=== PATIENT | male | born 1965 | race Caucasian/White ===

== ENCOUNTER 2025-05-11 13:55 | Inpatient (IN) | payer BC, SELFPAY ==
[2025-05-11] VITALS (13 sets, daily range): BP systolic 126–174; BP diastolic 72–125; PULSE 84–119; RESP 16–95; TEMP 36.8–36.9; O2SAT 95–99; BMI 25.1
--- NOTE | 2025-05-11 14:17 | EKG_ITS ---
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1965 Requested By: Jamila Rene Order Number: [id number] Reading MD: Jamila Rene Measurements Intervals [place] Rate: 109 P: 61 [place]: 149 QRS: 87 QRSD: 98 T: 2 QT: 329 QTc: 445 Interpretive Statements SINUS TACHYCARDIA INCOMPLETE RIGHT BUNDLE BRANCH BLOCK [90+ ms QRS DURATION, TERMINAL R IN V1/V2, 40+ ms S IN I/aVL/V4/V5/V6] NONSPECIFIC ST & T-WAVE ABNORMALITY ABNORMAL RHYTHM ECG Compared to ECG 05/31/2024 13:28:54 Incomplete right bundle-branch block now present T-wave abnormality now present Sinus rhythm no longer present Left ventricular hypertrophy no longer present ST (T wave) deviation no longer present /store/S0/[id number]/ecg/[id number].pdf
--- NOTE | 2025-05-11 14:24 | XR_ITS ---
Examination: CT brain head without contrast. 2-D sagittal coronal reconstructions Date and time of exam:May 11, 2025, 1652 hours Comparison August 22, 2024 INDICATIONS: Altered mental status today, history CVA CTDI: vol (mGy):47.1 DLP: (mGycm):967 Technique: Multiple CT axial sections of the brain have been obtained, 5 mm slice thickness. Contrast has not been administered. 2-D sagittal, coronal reconstructions have been obtained Low dose protocols were performed. One or more of the following dose reduction techniques were used; automated exposure control, adjustment of the mA and/or KV according to patient size, use of iterative reconstruction technique. Findings: No significant ventricular enlargement. Areas of encephalomalacia in the right and left frontal lobes Intra-axial or extra-axial hemorrhage density is not seen. No mass effect or midline shift Basal cisterns are not remarkable. Fourth ventricle is midline. Cranial vault intact. Impression: Negative for acute hemorrhage, mass effect or midline shift If symptoms persist, consider repeat brain MRI follow-up, show protocol
--- NOTE | 2025-05-11 14:24 | XR_ITS ---
Examination: AP chest single view Technique one AP portable upright chest single view Date and time: May 11, 2025 1458 hours Comparison August 22, 2024 INDICATIONS: Chest pain today. FINDINGS: Normal heart size. Lungs are clear. The osseous structures are intact IMPRESSION: No active disease
[2025-05-11 14:56] LABS: Base Excess, Venous -9 (-3-3); O2 Saturation, Venous 95 % (96-97); PCO2, Venous 35 mmHg (36-56); PO2, Venous 77 mmHg (15-58); pH, Venous 7.29 (7.33-7.66)
[2025-05-11 14:59] LABS: Basophils # (Auto) 0.1 Thou/mm3 (0.0-0.2); Basophils % (Auto) 1 % (0-2.5); Eosinophils # (Auto) 0.0 Thou/mm3 (0.0-0.5); Eosinophils % (Auto) 0 % (0-10); Hematocrit 44.3 % (41.0-53.0); Hemoglobin 15.8 g/dL (13.5-16.0); Immature Granulocytes Auto 0.05 Thou/mm3 (0.00-0.00); Lymphocytes # (Auto) 0.9 Thou/mm3 (1.0-4.8); Lymphocytes % (Auto) 10 % (10-50); Mean Corpuscular HGB Conc 35.7 g/dl (31.0-37.0); Mean Corpuscular Hemoglobin 31.4 pg (25.0-35.0); Mean Corpuscular Volume 88 fL (80-100); Monocytes # (Auto) 0.8 Thou/mm3 (0.0-0.8); Monocytes % (Auto) 8 % (0-12); Neutrophils # (Auto) 7.1 Thou/mm3 (1.8-7.7); Neutrophils % (Auto) 80 % (37-80); Nucleated Red Blood Cell # 0.00 Thou/mm3 (0.00-0.00); Nucleated Red Blood Cell % 0 /100 WBC (0); Platelet Count 181 Thou/mm3 (140-440); RDW Standard Deviation 40.6 fL (35.1-43.9); Red Blood Count 5.03 Miln/mm3 (4.50-5.90); White Blood Count 8.9 Thou/mm3 (3.8-10.6)
[2025-05-11 15:02] LABS: Lactate (Lactic Acid) 9.2 mMol/L (0.4-2.0)
[2025-05-11 15:24] LABS: Alanine Aminotransferase 38 U/L (10-49); Albumin, Serum 5.0 gm/dL (3.4-4.8); Albumin/Globulin Ratio 1.7 (1.2-2.2); Alcohol, Blood Medical < 3.0 mg/dL (0-10.0); Alkaline Phosphatase 90 U/L (46-116); Anion Gap 18 (7-16); Aspartate Amino Transferase 37 U/L (0-34); B-Type Natriuretic Peptide < 20 pg/mL (0-100); BUN/Creatinine Ratio 10 Ratio (12-20); Bilirubin,Total 1.1 mg/dL (0.3-1.2); Blood Urea Nitrogen 12 mg/dL (9-23); Calcium 9.9 mg/dL (8.3-10.6); Calcium (Corrected) 9.9 mg/dL (8.5-10.1); Carbon Dioxide 15.5 mMol/L (20.0-31.0); Chloride 107 mMol/L (98-107); Creatine Kinase 248 U/L (34-171); Creatinine (Component) 1.2 mg/dL (0.6-1.3); Estimated Creatinine Clearance 66.7 mL/min (>60); Globulin 2.9 gm/dL (2.3-3.5); Glucose 143 mg/dL (74-106); Osmolality,Calculated 281 (275-295); Potassium 4.2 mMol/L (3.4-5.1); Sodium 140 mMol/L (136-145); Total Protein 7.9 gm/dL (5.7-8.2); Troponin I < 0.020 ng/mL (0.0-0.045); eGFR > 60 See Note
--- NOTE | 2025-05-11 15:33 | EDNOTE_ITS ---
ED Seizures RME/HPI General Chief Complaint: Seizure Stated Complaint: POSSIBLE SEIZURE Time Seen by Provider: 05/11/25 14:24 Arrival date/time: 05/11/25 13:55 Limitations: no limitations RME / HPI RME / HPI Narrative: 60 year old male with history of hypertension presents the ED after experiencing a witnessed seizure at work that was witnessed by colleagues. Upon arrival, the patient was slightly postictal, confused and disoriented, and was speaking incoherently. The patient has no known history of seizures. There are no other symptoms or complaints reported at this time. No recent illness or trauma. Patient admits to drinking alcohol daily. Related Data Previous Rx's ?Medication ?Instructions ?Recorded amlodipine 10 mg tablet 10 mg PO QDAY #30 tabs 11/25 amoxicillin 875 mg-potassium 1 tab PO BID #14 tabs clavulanate 125 mg tablet (Augmentin) meclizine 50 mg tablet 50 mg PO BID PRN dizziness # 20 tabs 08/22/24 Allergies Allergy/AdvReac Type Severity Reaction Status Date / Time No Known Allergies Allergy Verified 11/24/19 09:48 Review of Systems Review of Systems Systems Reviewed: All systems reviewed, normal except as documented Past Medical History Past Medical History NEUROLOGIC: Positive Traumatic Brain Injury CARDIAC: Positive Hypertension PSYCHO/SOCIAL: Positive Depression Surgical History SURGICAL: Positive Cardiac Surgery and Tonsillectomy Social History SMOKING STATUS: Never smoker SECOND HAND EXPOSURE: No SUBSTANCE USE: does not use ED Exam General Limitations: Present no limitations General appearance: Present alert and in no apparent distress Head Head exam: Present atraumatic Eye Eye exam: Present normal appearance, PERRL and EOMI ENT ENT exam: Present normal exam, normal oropharynx and mucous membranes moist Neck Neck exam: Present normal inspection, full ROM and trachea midline Chest Chest inspection: Present normal inspection and symmetric chest wall rise Respiratory Respiratory exam: Present normal lung sounds bilaterally Cardiovascular Cardiovascular exam: Present regular rate, normal rhythm and normal heart sounds Abdominal Exam Abdominal exam: Present soft and normal bowel sounds Extremities Exam Extremities exam: Present normal inspection and full ROM Back Exam Back exam: Present normal inspection and full ROM Neurological Exam Neurological exam: Present alert (Slightly postictal ) and CN II-XII intact Psychiatric Psychiatric exam: Present normal affect and normal mood Skin Skin exam: Present warm, dry, intact and normal color Course Quality Measures none Orders Category Date Time Status COVID-19 Screening Questionnaire NOW Care 05/11/25 18:22 Active Decision to Admit X1 Care 05/11/25 18:22 Completed EKG (ED ONLY) *Do not use* NOW Care 05/11/25 14:[address] head/brain wo con Stat Exams 05/11/25 14:24 Completed CXRP [XR chest 1V portable] Stat Exams 05/11/25 14:24 Completed EKG (ED Only) Stat Exams 05/11/25 14:17 Draft Alcohol, Blood Medical Stat Lab 05/11/25 14:35 Completed BNP [B-Type Natriuretic Peptide] Stat Lab 05/11/25 14:35 Completed CBC [CBC] Stat Lab 05/11/25 14:35 Completed CK [Creatine Kinase] Stat Lab 05/11/25 14:35 Completed CMP [Comprehensive Metabolic Panel] Stat Lab 05/11/25 14:35 Completed Drug Screen,Urine Stat Lab 05/11/25 17:05 Completed Lactate (Lactic Acid) Stat Lab 05/11/25 14:35 Completed Lactic Acid, 3 HR Stat Lab 05/11/25 18:08 Completed Troponin I Stat Lab 05/11/25 14:35 Completed UA, C/S IF [Urinalysis, C/S if Indicated] Stat Lab 05/11/25 17:05 Completed VBG [Venous Blood Gas] Stat Lab 05/11/25 14:35 Completed Diazepam [Valium] Med 05/11/25 18:14 Discontinued 10 mg PO X1 ONE Phenytoin Inj [Dilantin Inj] Med 05/11/25 18:17 Discontinued 1,000 mg IV X1 ONE Phenytoin Inj [Dilantin Inj] 1,000 mg Med 05/11/25 18:30 Active Sodium Chloride 0.9% [Ns] 100 ml IV X1 Thiamine Inj [Vitamin B-1 Inj] 250 mg Med 05/11/25 18:16 Discontinued Sodium Chloride 0.9% [Ns] 100 ml IV X1 Vital Signs Vital signs: Vital Signs Temperature 98.5 F 05/11/25 13:59 Pulse Rate 119 H 05/11/25 13:59 Respiratory Rate 18 05/11/25 13:59 Blood Pressure 174/94 H 05/11/25 13:59 Pulse Oximetry (%) 95 05/11/25 13:59 Oxygen Delivery Method Room Air 05/11/25 13:59 Pulse ox is 95% on room air which is adequate. Seizure MDM Narrative MDM Narrative:: ILivier, deborah scribing for and in the presence of Dr. Martell. Assessment: Acute encephalopathy, most likely secondary to alcohol use, new- onset seizure, likely alcohol-related. Plan: Thiamine, CT head, no antiepileptic medications started at this time, as this was a first-time seizure with likely provoked etiology, monitoring, and alcohol cessation. Patient CK is elevated, consistent with seizure. Patient will be admitted to medicine team for alcohol withdrawal seizure and Wernicke encephalopathy. Patient data External records reviewed:: [facility] previous records (I reviewed ED visit on 2023 ) and EMS form Clinical information provided by:: patient and EMS Social determinants that could affect healthcare access:: alcohol use Patient has the following chronic illnesses:: Alcoholism How is presenting disease/condition affected by chronic disease/condition?: exac erbated by Evaluation data The following diagnostics were reviewed and interpreted by me:: lab results, radiology exam(s) and EKG tracing(s) (sinus tachycardia, no axis deviation, no ischemia, positive LVH, normal QT, rate 109. ) Lab and/or radiology exams considered but not ordered:: None Interpretation Summary: Ordering Physician: Jamila Rene MD Date of Service: 05/11/25 Procedure(s): XR chest 1V portable Accession Number(s): [id number] cc: Jamila Rene MD; Pito Hsieh MD~ Examination: AP chest single view Technique one AP portable upright chest single view Date and time: May 11, 2025 1458 hours Comparison August 22, 2024 INDICATIONS: Chest pain today. FINDINGS: Normal heart size. Lungs are clear. The osseous structures are intact IMPRESSION: No active disease Dictated By: Pito Hsieh MD Signed By: <Electronically signed by Pito Hsieh MD in OV> 05/11/25 1455 Medications / Prescriptions Medications or Prescriptions considered but not ordered:: None Medication administrations:: Medication Administration History Phenytoin Sodium 1,000 mg/ (Sodium Chloride) 120 mls @ 240 mls/hr IV X1 ONE Stop: 05/11/25 18:59 Discontinued Medications Diazepam (Diazepam 5 Mg Tablet) 10 mg PO X1 ONE Stop: 05/11/25 18:15 Thiamine HCl 250 mg/ Sodium (Chloride) 102.5 mls @ 205 mls/hr IV X1 ONE Stop: 05/11/25 18:45 Phenytoin Sodium (Phenytoin Inj 50 Mg/Ml Vial 5 Ml) 1,000 mg IV X1 ONE Stop: 05/11/25 18:18 Last Admin: 05/11/25 18:30 Dose: Not Given Documented By: DB Non-Admin Reason: Cancelled by Provider None Consultations Consultation(s) initiated? (list below): No Diagnosis Seizure Differential Diagnosis: febrile convulsion, focal seizure, generalized seizure, epileptic seizure, status epilepticus and other (encephalopathy ) Most likely diagnosis given after review of the tests above:: Alcohol withdrawal seizure Wernicke encephalopathy Admission Indicated Admission indicated?: not indicated Admission Request Was there a request for admission?: No Disposition Plan Disposition Plan: Admit Discharge Plan Plan Patient Disposition: Admit Acute Care w/in Hospital Prescriptions/Referrals Prescriptions/Med Rec: No Action amoxicillin-pot clavulanate [Augmentin] 875-125 mg tablet 1 tab PO BID Qty: 14 0RF amlodipine 10 mg tablet 10 mg PO QDAY Qty: 30 0RF meclizine 50 mg tablet 50 mg PO BID PRN (Reason: dizziness) Qty: 20 0RF Referrals: Carl Gautam MD [Primary Care Provider] - In 1 week Problem List Clinical Impression: New onset seizure, Alcohol withdrawal seizure, Wernicke encephalopathy Patient/Caregiver Discharge Instructions Print Language: Lao Stand Alone Forms: Estefania Award Info., Patient Portal Info Letter
[2025-05-11 17:32] LABS: Collection Type, Urine Clean Catch; Squamous Epithelial Cell,Urine 0 /hpf (0-5)
[2025-05-11 17:50] LABS: Reflex Lactate? Y
[2025-05-11 17:53] LABS: Amphetamine/Methamp Scrn,U Negative (Negative); Barbiturate Screen,Urine Negative (Negative); Benzodiazepines Screen,Urine Negative (Negative); Benzoylecgonine Screen, Ur Negative (Negative); Fentanyl Screen,Urine Negative (Negative); Opiate Screen,Urine Negative (Negative); THC Screen,Urine Negative (Negative)
[2025-05-11 18:01] LABS: Amorphous Crystals,Urine Present (Absent); Bilirubin,Urine Negative (Negative); Blood,Urine 1+ (Negative); Color,Urine Lt-Yellow (Lt Yel-Yel); Culture Indicated,Urine Not Indicated; Glucose, Urine Negative (Negative); Ketones,Urine Trace (Negative); Leukocyte Esterase,Urine Negative (Negative); Nitrite,Urine Negative (Negative); PH,Urine 5.5 (5.0-7.0); Protein,Urine 1+ (Neg - Trace); RBC,Urine 19 /hpf (0-3); Specific Gravity,Urine 1.025 (1.001-1.035); Urobilinogen,Urine Negative mg/dL (0.0-1.0); WBC,Urine 4 /hpf (0-5)
[2025-05-11 18:07] LABS: Clarity,Urine Hazy (Clear/Hazy); Sperm,Urine Present
[2025-05-11 18:20] LABS: Lactic Acid, 3 HR 1.3 mMol/L (0.4-2.0)
[2025-05-11] MEDS: DIAZEPAM 5 MG TABLET 10 MG PO (19:22)
[2025-05-11] MEDS: hydrALAZINE INJ 20 MG/ML VIAL IVP (19:24)
[2025-05-11] MEDS: THIAMINE INJ 250 MG in SODIUM CHLORIDE 0.9% 100 ML 205 MG IV ×2 (19:29→20:14)
[2025-05-11] MEDS: PHENYTOIN INJ 1,000 MG in SODIUM CHLORIDE 0.9% 100 ML 240 MG IV (19:30)
--- NOTE | 2025-05-11 19:38 | PC.NURSE ---
report recieved from Hussein LOCKHART. pt resting quietly. GCS 15. admit MD with pt now.
--- NOTE | 2025-05-11 20:02 | ESHP_ITS ---
Documentation for date of: 05/11/25 HPI History of Present Illness Chief complaint: Alcohol seizures History of present illness: 60-year-old male with past medical history of hypertension who presented to the ED after a seizure episode. 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 Patient was sent to the mortgage processing manager's office where he went up a cabinet and noticed that his arms and legs started shaking he was told that he probably needed to drink some water and did so and sat back down. After which patient states he started feeling weird again and after that has no recollection of any events just that he woke up in the ER. On arrival, the patient was slightly postictal, confused and disoriented, and was speaking incoherently. The patient has no known history of seizures. Per EMS patient apparently had a seizure when asked the patient about this he does not have any recollection of having a seizure but does endorse that he bit his tongue which he noticed when he woke up in the ER. He denies any blurry vision, lightheadedness, palpitations, headaches or incontinence symptoms prior to seizure activity. Patient states he also drinks beer and vodka at least 3-4 times a week but patient could not state the amount he does say a lot though. At the present moment in time patient denies any fever, chills, nausea, vomiting, abdominal pain, chest pain, palpitations, shortness of breath, anxiety, bugs crawling around his skin, hallucinations. ED course: ED vitals: BP 174/94, HR 119, saturating 95% on room air ED labs: CBC unremarkable, bicarb 15.5, anion gap 18, glucose 143, lactic acid of 9.2 which later down trended to 1.3, AST 37, creatinine kinase 248 UA negative for UTI, head CT negative for acute hemorrhage, midline shift, mass effect, U-Tox negative chest x-ray negative for any acute illness, EKG sinus tachycardia PMHx: As above SX Hx: None Social Hx: Drinks beer and vodka at least 3-4 times a week cannot state the amount, denies cigarette use however does use nicotine gum, denies illicit substances including THC FH X: Unknown Review of Systems Review of Systems Systems Reviewed: All systems reviewed, normal except as documented Narrative Review of Systems: All 12 systems reviewed and found negative unless otherwise stated in the HPI. Exam Vital Signs Temp Pulse Resp BP Pulse Ox O2 Del Method 98.2 F 87 17 168/108 H 97 Room Air 05/11/25 18:32 05/11/25 19:24 05/11/25 18:32 05/11/25 19:24 05/11/25 18:32 05/11/25 18:32 Narrative Exam Physical Exam GENERAL: NAD, AAOx3 HEENT: Dry mucosa. Eyes open, symmetrical, & clear, mild nystagmus, tongue bitten CARDIO: Heart RRR, no obvious murmurs PULM: No noted coughing/dyspnea CTA B/L, no R/W/R GI: Abdomen soft, nondistended, no pain on palpation. BSx4 SKIN/MSK/EXT: Mild tremors bilateral upper extremities, no pain on palpation. Pedal pulses present B/L Results: Labs 05/11/25 14:35 05/11/25 14:35 Labs: Short CBC 05/11/25 Range/Units 14:35 WBC 8.9 (3.8-10.6) Thou/mm3 Hgb 15.8 (13.5-16.0) g/dL Hct 44.3 (41.0-53.0) % Plt Count 181 (140-440) Thou/mm3 BMP 05/11/25 14:35 Sodium 140 Potassium 4.2 Chloride 107 Carbon Dioxide 15.5 L BUN 12 Creatinine 1.2 Glucose 143 H Calcium 9.9 Cardiac Enzymes 05/11/25 Range/Units 14:35 Total Creatine Kinase 248 H (34-171) U/L Troponin I < 0.020 (0.0-0.045) ng/mL Liver Function 05/11/25 Range/Units 14:35 Total Bilirubin 1.1 (0.3-1.2) mg/dL AST 37 H (0-34) U/L ALT 38 (10-49) U/L Alkaline Phosphatase 90 (46-116) U/L Albumin 5.0 H (3.4-4.8) gm/dL Urine 05/11/25 Range/Units 17:05 Urine Color Lt-Yellow (Lt Yel-Yel) Urine Clarity Hazy (Clear/Hazy) Urine pH 5.5 (5.0-7.0) Ur Specific Dexter 1.025 (1.001-1.035) Urine Protein 1+ A (Neg - Trace) Urine Glucose (UA) Negative (Negative) ABG Interpretation ABG results: 05/11/25 14:35 VBG pH 7.29 L VBG pCO2 35 L VBG pO2 77 H VBG Base Excess -9 L Quality Measures Quality Measures none Medications Home Medications and Allergies Allergies Allergy/AdvReac Type Severity Reaction Status Date / Time No Known Allergies Allergy Verified 11/24/19 09:48 Visit Medications Acetaminophen (Acetaminophen 325 Mg Tablet) 650 mg PO Q6H PRN PRN Reason: Fever >100.4 Stop: 06/10/25 19:50 Acetaminophen (Acetaminophen 325 Mg Tablet) 650 mg PO Q6H PRN PRN Reason: PAIN SCALE 1-3 (mild Stop: 06/10/25 19:50 Enoxaparin Sodium (Enoxaparin Sod Inj 40 Mg/0.4 Ml Syringe) 40 mg SC QDAY [facility] Stop: 05/26/25 08:59 Lactated Ringer's (Lactated Ringers) 1,000 mls @ 125 mls/hr IV .Q8H NEFTALI Stop: 06/10/25 19:59 Thiamine HCl 250 mg/ Sodium (Chloride) 102.5 mls @ 205 mls/hr IV X1 ONE Stop: 05/11/25 20:24 Thiamine HCl 500 mg/ Sodium (Chloride) 105 mls @ 205 mls/hr IV TID [facility] Stop: 05/13/25 21:59 Ondansetron HCl (Ondansetron Inj 2 Mg/Ml Inj 2 Ml) 4 mg IVP Q6H PRN; Protocol PRN Reason: NAUSEA OR VOMITING Stop: 06/10/25 19:50 Sennosides (Senna Tablet) 1 tab PO QDAY [facility]; Protocol Stop: 06/11/25 08:59 Discontinued Medications Diazepam (Diazepam 5 Mg Tablet) 10 mg PO X1 ONE Stop: 05/11/25 18:15 Last Admin: 05/11/25 19:22 Dose: 10 mg Hydralazine HCl (Hydralazine Inj 20 Mg/Ml Vial) 20 mg IVP X1 ONE Stop: 05/11/25 18:56 Last Admin: 05/11/25 19:24 Dose: 20 mg Thiamine HCl 250 mg/ Sodium (Chloride) 102.5 mls @ 205 mls/hr IV X1 ONE Stop: 05/11/25 18:45 Last Admin: 05/11/25 19:29 Dose: 205 mls/hr Phenytoin Sodium 1,000 mg/ (Sodium Chloride) 120 mls @ 240 mls/hr IV X1 ONE Stop: 05/11/25 18:59 Last Admin: 05/11/25 19:30 Dose: 240 mls/hr Phenytoin Sodium (Phenytoin Inj 50 Mg/Ml Vial 5 Ml) 1,000 mg IV X1 ONE Stop: 05/11/25 18:18 Last Admin: 05/11/25 18:30 Dose: Not Given Assessment & Plan Plan 60-year-old male with past medical history of hypertension who presented to the ED after seizure activity. Patient will be admitted for alcohol-related seizures and possible Warnicke encephalopathy. #Alcohol related seizures #Wernicke encephalopathy #Lactic acidosis?resolved Patient noticed that his arms and legs were shaking at work. Patient has no recollection after this only remembers waking up in the ER. Patient with visible tremors on B/L upper extremities and mild lateral nystagmus on Physical Exam On arrival, the patient was slightly postictal, confused and disoriented, and was speaking incoherently Patient does drink significant amounts of alcohol beers and vodka could not state the amount In the ED patient received diazepam, phenytoin Lactic acid corrected to 1.3 from 9.2 ? Thiamine IV 500 mg 3 times daily X 2 days, thiamine 250 mg after ? Ativan for breakthrough seizures ? Folic acid ? CIWA protocol ? IV fluids #Hypertension ?Resume amlodipine as taken at home Health Maintenance: Disposition: Telemetry, CIWA protocol, Wernicke encephalopathy Fluids: LR Feeding: Low-sodium Thrombo prophylaxis: Lovenox Gastric Ulcer prophylaxis: None CODE STATUS: Full code Case discussed with my attending Dr. Ramos Gutierrez MD PGY-1 Disclaimer: Despite multiple revisions, due to the dictation software being used, the document bellow may not be free of grammatical errors including phonetic/typographic errors. However, this does not deter from our commitment to providing health care in the patient's best interest in mind. Attending Provider Attestation/Addendum 60-year-old male patient with a BMI of 25. The patient has high blood pressure. The patient was seen in the ER following possible stroke workup. He was supposedly postictal in the emergency room. His blood pressure is elevated. Brain CT scan is unremarkable. There is no hemorrhage no midline shift no mass noted the patient is afebrile. He has no stiff neck. There is no skin rash. Patient will be admitted for further workup and management. I discussed with and supervised the resident physician who took care of this patient. I agree with the assessment and plan as above.
[2025-05-11] MEDS: RINGERS LACTATED 1000 ML 1,000 ML 125 ML IV (20:13)
--- NOTE | 2025-05-11 20:58 | PC.NURSE ---
pt awake and alert. waiting for rm .
--- NOTE | 2025-05-11 22:22 | PC.NURSE ---
no sz activity since arival.
[2025-05-12] VITALS (8 sets, daily range): BP systolic 135–165; BP diastolic 79–98; PULSE 74–96; RESP 14–98; TEMP 36.1–37.2; O2SAT 96–98
[2025-05-12 00:12] LABS: Magnesium 2.2 mg/dL (1.6-2.6)
[2025-05-12] MEDS: FOLIC ACID 1 MG TABLET PO ×3 (00:13→21:14)
[2025-05-12] MEDS: THIAMINE INJ 500 MG in SODIUM CHLORIDE 0.9% 100 ML 210 MG IV ×3 (05:57→21:14)
[2025-05-12] MEDS: RINGERS LACTATED 1000 ML 1,000 ML 125 ML IV ×2 (05:57→14:44)
[2025-05-12 06:02] LABS: Basophils # (Auto) 0.1 Thou/mm3 (0.0-0.2); Basophils % (Auto) 1 % (0-2.5); Eosinophils # (Auto) 0.1 Thou/mm3 (0.0-0.5); Eosinophils % (Auto) 1 % (0-10); Hematocrit 40.6 % (41.0-53.0); Hemoglobin 14.4 g/dL (13.5-16.0); Immature Granulocytes Auto 0.04 Thou/mm3 (0.00-0.00); Lymphocytes # (Auto) 1.1 Thou/mm3 (1.0-4.8); Lymphocytes % (Auto) 10 % (10-50); Mean Corpuscular HGB Conc 35.5 g/dl (31.0-37.0); Mean Corpuscular Hemoglobin 31.6 pg (25.0-35.0); Mean Corpuscular Volume 89 fL (80-100); Monocytes # (Auto) 1.2 Thou/mm3 (0.0-0.8); Monocytes % (Auto) 11 % (0-12); Neutrophils # (Auto) 8.5 Thou/mm3 (1.8-7.7); Neutrophils % (Auto) 78 % (37-80); Nucleated Red Blood Cell # 0.00 Thou/mm3 (0.00-0.00); Nucleated Red Blood Cell % 0 /100 WBC (0); Platelet Count 218 Thou/mm3 (140-440); RDW Standard Deviation 40.9 fL (35.1-43.9); Red Blood Count 4.56 Miln/mm3 (4.50-5.90); White Blood Count 11.0 Thou/mm3 (3.8-10.6)
[2025-05-12 06:40] LABS: Alanine Aminotransferase 30 U/L (10-49); Albumin, Serum 4.2 gm/dL (3.4-4.8); Albumin/Globulin Ratio 1.8 (1.2-2.2); Alkaline Phosphatase 77 U/L (46-116); Anion Gap 6 (7-16); Aspartate Amino Transferase 48 U/L (0-34); BUN/Creatinine Ratio 9 Ratio (12-20); Bilirubin,Total 1.7 mg/dL (0.3-1.2); Blood Urea Nitrogen 8 mg/dL (9-23); Calcium 8.9 mg/dL (8.3-10.6); Calcium (Corrected) 8.9 mg/dL (8.5-10.1); Carbon Dioxide 22.7 mMol/L (20.0-31.0); Chloride 108 mMol/L (98-107); Creatinine (Component) 0.9 mg/dL (0.6-1.3); Estimated Creatinine Clearance 89.0 mL/min (>60); Globulin 2.4 gm/dL (2.3-3.5); Glucose 112 mg/dL (74-106); Magnesium 1.9 mg/dL (1.6-2.6); Osmolality,Calculated 273 (275-295); Phosphorous 3.0 mg/dL (2.4-5.1); Potassium 3.5 mMol/L (3.4-5.1); Sodium 137 mMol/L (136-145); Total Protein 6.6 gm/dL (5.7-8.2); eGFR > 60 See Note
--- NOTE | 2025-05-12 07:04 | PC.NURSE ---
Not able to complete med rec; pt does not know names and doses of medications taken at home. Per pt, will have bring medication list from home.
[2025-05-12] MEDS: ENOXAPARIN SOD INJ 40 MG/0.4 ML SYRINGE SC (09:21)
--- NOTE | 2025-05-12 14:38 | ESPR_ITS ---
Documentation for date of: 05/12/25 Patient is a 60-year-old male with past medical history of hypertension and anxiety who takes amlodipine, lisinopril and recently added amitriptyline as home medication. Patient was admitted for alcohol withdrawal, new onset of seizure, and concern for Warnicke's encephalopathy. Per in room, patient consumes about 48 beers per day and half a pint of vodka every other day approximately. Seizure likely tonic-clonic seizure that began in right upper extremity going rigid then rhythmic jerks noted that spread bilaterally and to lower extremities. Apnea noted by . Tongue bitting noted. Denied urinary incontinence. Patient does have a past medical history of intracranial brain bleed that occurred about 1 year ago after mechanical fall from ladder. After intracrainal brain bleed patient complaining of anosmia present. Given past medical history of alcohol use disorder, likely secondary to alcohol withdrawal as last drink was about two days ago. CIWA 0. Hypertension, resume Amlodipine 10 mg PO, holding Lisinopril. Penidng Neurology consult. Pending EEG. Continue thiamine. Outpatient please follow up with PCP for thiamine, B12, and folic levels. Please follow up for possible Naltrexone or other medical treatment for alcohol use disorder. - The patient's plan was discussed with attending Dr. Vic Currie MD PGY2 Internal Medicine Subjective Subjective Interval history: Patient is 60 y/o male with a PMHx of HTN who was recently started on several medications including Amitriptyline, Amlodipine and Lisinopril by PCP. Patient is an overnight admit for new onset seizure likely secondary alcoholic-related seizure and possible Wernicke encephalopathy. Patient stated his last drink was 2 days ago,thus greater than 48 hours. Patient is cooperative and appears to be in no acute distress. Alert and Orientated. Patient recalls seizure episode yesterday, where he fell on all four extremities shaking at work. Positive for post ictal state. Denied urinary incontinence. He is unaware of how long it lasted and continued to deny previous seizure episodes. Patient stated that he is feeling fine today. Patient's nystagmus has resolved. Patient confirms that he drinks 3-4 beers 3 to 4 times a week. Patient states that he drinks half a glass of vodka, but is not clear about how often. Patient denies N/V, visual, auditory, and tactile disturbances, and anxiety. Exam Vital Signs Temp Pulse Resp BP Pulse Ox O2 Del Method 98.8 F 74 16 135/79 H 98 Room Air 05/12/25 12:00 05/12/25 12:00 05/12/25 12:00 05/12/25 12:05/12/25 12:05/12/25 12:00 Narrative Exam General Appearance: Alert & Oriented X3, well-nourished [sex] who is lying in bed in [no acute distress] HEENT: Skull symmetrical and atraumatic. Conjunctivae pin and moist. Pupils equal, round, reactive to light and accommodation (PERRL). External ear without lesion or discharge. Straight, nares patient, mucosa pink, no discharge. No thyroid nodule appreciated. No cervical lymphadenopathy. Cardio: Normal Rate and Rhythm with S1 and S2 heart sounds. No murmurs or extra heart sounds auscultated. No bruits on carotid auscultation. No peripheral edema or cyanosis. Lungs: Symmetric with good expansion. Chest and back non-tender. Breath sounds vesicular without crackles, wheezing or rhonchi Abdomen: Non-tender, Non-distended, Normal Reactive Bowel Sounds Neuro: Alert, cooperative, oriented to person, place, and time. Speech clear. CN grossly intact. Upper motor strength 5/5 and Lower motor strength 5/5. Sensation intact. Constitutional Constitutional: no acute distress and cooperative Routine HEENT Exam Head: Present normocephalic and atraumatic Eye: Present normal accommodation ENT: Present mucous membranes moist Detailed Eye Exam Pupils: bilateral: regular, round Routine Respiratory Exam Respiratory: Present lungs clear, normal breath sounds and no resp distress Routine Cardiovascular Exam Cardiovascular: Present RRR, S1 and S2 Routine Abdominal Exam Abdominal: Present soft and normoactive bowel sounds Routine Extremities Exam Extremities: Present calf tenderness (bilateral) Detailed Lower Extremity Exam Lower leg: bilateral: tenderness (bilateral calf) Routine Skin Exam Skin: Present intact Routine Neurological Exam Neurological: Present alert, oriented X3 and moving all extremities; Absent altered mental status, nystagmus or asterixis Routine Psychiatric Exam Psychiatric: Present normal affect and normal thought process Objective Labs 05/13/25 05:05 05/13/25 05:05 Labs: Laboratory Results - last 24 hr 05/11/25 05/11/25 05/11/25 14:35 17:05 18:08 WBC 8.9 RBC 5.03 Hgb 15.8 Hct 44.3 MCV 88 MCH 31.4 MCHC 35.7 RDW Std Deviation 40.6 Plt Count 181 Neut % (Auto) 80 Lymph % (Auto) 10 [place] % (Auto) 8 Eos % (Auto) 0 Baso % (Auto) 1 Neut # (Auto) 7.1 Lymph # (Auto) 0.9 L [place] # (Auto) 0.8 Eos # (Auto) 0.0 Baso # (Auto) 0.1 Immature Gran # (Auto) 0.05 H Absolute Nucleated RBC 0.00 Immature Gran % 1 H Nucleated RBC % 0 VBG pH 7.29 L VBG pCO2 35 L VBG pO2 77 H VBG O2 Sat ([place]itt[place]) 95 L VBG Base Excess -9 L Sodium 140 Potassium 4.2 Chloride 107 Carbon Dioxide 15.5 L Anion Gap 18 H BUN 12 Creatinine 1.2 Estim Creat Clear Calc 66.7 eGFR > 60 BUN/Creatinine Ratio 10 L Glucose 143 H Calculated Osmolality 281 Lactic Acid 9.2 H* 1.3 Calcium 9.9 Corrected Calcium 9.9 Phosphorus Magnesium 2.2 Total Bilirubin 1.1 AST 37 H ALT 38 Alkaline Phosphatase 90 Total Creatine Kinase 248 H Troponin I < 0.020 B-Natriuretic Peptide < 20 Total Protein 7.9 Albumin 5.0 H Globulin 2.9 Albumin/Globulin Ratio 1.7 Ur Collection Type Clean Catch Urine Color Lt-Yellow Urine Clarity Hazy Urine pH 5.5 Ur Specific [place] 1.025 Urine Protein 1+ A Urine Glucose (UA) Negative Urine Ketones Trace Urine Blood 1+ A Urine Nitrite Negative Urine Bilirubin Negative Urine Urobilinogen (Auto) Negative Ur Leukocyte Esterase Negative Urine RBC 19 H Urine WBC 4 Ur Squamous Epith Cells 0 Amorphous Crystals Present A Urine Bacteria None Urine Sperm Present A Ur Culture Indicated? Not Indicated Urine Opiates Screen Negative Urine Fentanyl Screen Negative Ur Barbiturates Screen Negative U Amphetamin/Meth Scrn Negative U Benzodiazepines Scrn Negative U Cocaine Metab Screen Negative U Marijuana (THC) Screen Negative Ethyl Alcohol < 3.0 05/12/25 05:08 WBC 11.0 H RBC 4.56 Hgb 14.4 Hct 40.6 L MCV 89 MCH 31.6 MCHC 35.5 RDW Std Deviation 40.9 Plt Count 218 D Neut % (Auto) 78 Lymph % (Auto) 10 [place] % (Auto) 11 Eos % (Auto) 1 Baso % (Auto) 1 Neut # (Auto) 8.5 H Lymph # (Auto) 1.1 [place] # (Auto) 1.2 H Eos # (Auto) 0.1 Baso # (Auto) 0.1 Immature Gran # (Auto) 0.04 H Absolute Nucleated RBC 0.00 Immature Gran % 0 Nucleated RBC % 0 VBG pH VBG pCO2 VBG pO2 VBG O2 Sat ([place]itt[place]) VBG Base Excess Sodium 137 Potassium 3.5 D Chloride 108 H Carbon Dioxide 22.7 Anion Gap 6 L BUN 8 L Creatinine 0.9 Estim Creat Clear Calc 89.0 eGFR > 60 BUN/Creatinine Ratio 9 L Glucose 112 H Calculated Osmolality 273 L Lactic Acid Calcium 8.9 Corrected Calcium 8.9 Phosphorus 3.0 Magnesium 1.9 Total Bilirubin 1.7 H D AST 48 H ALT 30 Alkaline Phosphatase 77 Total Creatine Kinase Troponin I B-Natriuretic Peptide Total Protein 6.6 Albumin 4.2 D Globulin 2.4 Albumin/Globulin Ratio 1.8 Ur Collection Type Urine Color Urine Clarity Urine pH Ur Specific [place] Urine Protein Urine Glucose (UA) Urine Ketones Urine Blood Urine Nitrite Urine Bilirubin Urine Urobilinogen (Auto) Ur Leukocyte Esterase Urine RBC Urine WBC Ur Squamous Epith Cells Amorphous Crystals Urine Bacteria Urine Sperm Ur Culture Indicated? Urine Opiates Screen Urine Fentanyl Screen Ur Barbiturates Screen U Amphetamin/Meth Scrn U Benzodiazepines Scrn U Cocaine Metab Screen U Marijuana (THC) Screen Ethyl Alcohol ABG Interpretation ABG results: 05/11/25 14:35 VBG pH 7.29 L VBG pCO2 35 L VBG pO2 77 H VBG Base Excess -9 L Quality Measures Quality Measures VTE prophylaxis (Lovenox 40 mg SC QD) Assessment & Plan Problem List (1) New onset seizure: Status: Acute (2) Alcohol withdrawal seizure: Qualifiers: Complication of substance-induced condition: uncomplicated Qualified Code(s): F10.930 - Alcohol use, unspecified with withdrawal, uncomplicated; R56.9 - Unspecified convulsions Status: Acute (3) Wernicke encephalopathy: Status: Acute Assessment Current Active Medications: Generic Name Dose Route Start Last Admin Trade Name Freq PRN Reason Stop Dose Admin Acetaminophen 650 mg 05/11/25 19:51 Acetaminophen 325 Mg Tablet PO 06/10/25 19:50 Q6H PRN Fever >100.4 Acetaminophen 650 mg 05/11/25 19:51 Acetaminophen 325 Mg Tablet PO 06/10/25 19:50 Q6H PRN PAIN SCALE 1-3 (mild Amlodipine Besylate 10 mg 05/12/25 09:00 05/12/25 09:21 Amlodipine Besylate 5 Mg Tablet PO 06/11/25 08:59 10 mg QDAY NEFTALI Administration Enoxaparin Sodium 40 mg 05/12/25 09:00 05/12/25 09:21 Enoxaparin Sod Inj 40 Mg/0.4 Ml Syringe SC 05/26/25 08:59 40 mg QDAY NEFTALI Administration Folic Acid 1 mg 05/11/25 21:00 05/12/25 09:21 Folic Acid 1 Mg Tablet PO 05/16/25 20:59 1 mg BID NEFTALI Administration Lactated Ringer's 1,000 mls @ 125 mls/hr 05/11/25 20:00 05/12/25 05:57 Lactated Ringers IV 06/10/25 19:59 125 mls/hr .Q8H NEFTALI Administration Thiamine HCl 500 mg/ Sodium 105 mls @ 210 mls/hr 05/12/25 14:00 05/12/25 14:32 Chloride IV 05/17/25 15:00 210 mls/hr TID NEFTALI Administration Lorazepam 0.5 mg 05/11/25 20:01 Lorazepam 2 Mg/Ml Vial IV 05/16/25 20:00 Q2HR PRN CIWA SCORE 7-13 Lorazepam 1 mg 05/11/25 20:01 Lorazepam 2 Mg/Ml Vial IV 05/16/25 20:00 Q2HR PRN CIWA SCORE 14-19 Lorazepam 2 mg 05/11/25 20:01 Lorazepam 2 Mg/Ml Vial IV 05/16/25 20:00 Q2HR PRN CIWA SCORE 20-25 Lorazepam 0.5 mg 05/11/25 20:01 Lorazepam 0.5 Mg Tablet PO 05/16/25 20:00 Q4HR PRN CIWA Score 2-6 Lorazepam 1 mg 05/11/25 20:34 Lorazepam 2 Mg/Ml Vial IVP Q15MIN PRN Breakthrough seizures Ondansetron HCl 4 mg 05/11/25 19:51 Ondansetron Inj 2 Mg/Ml Inj 2 Ml IVP 06/10/25 19:50 Q6H PRN NAUSEA OR VOMITING Protocol Sennosides 1 tab 05/12/25 09:00 05/12/25 09:21 Senna Tablet PO 06/11/25 08:59 1 tab QDAY NEFTALI Administration Protocol Thiamine HCl 100 mg 05/17/25 21:00 Thiamine 100 Mg Tablet PO 06/16/25 20:59 BID NEFTALI Plan Patient is a 60-year-old male with past medical history of hypertension who presented to the ED with seizure activity. Patient admitted for alcohol-related seizures and possible Wernicke encephalopathy. #Alcohol Withdrawal, seizure like activity #Alcohol Use Disorder #Wernicke encephalopathy #Lactic acidosis?resolved Patient noticed that his arms and legs were shaking at work. Patient has no recollection after this only remembers waking up in the ER. On arrival, the patient was slightly postictal, confused and disoriented, and was speaking incoherently. In the ED patient received diazepam, phenytoin Patient does not exhibit tremors or nystagmus on physical exam today Patient does drink significant amounts of alcohol beers and vodka could not state the amount Lactic acid corrected to 1.3 from 9.2 Plan: - Thiamine IV 250 mg given 05/11/25 @ 19:29 and 20:14 ? Thiamine IV 500 mg 3 times daily X 5 days started 05/12/25 @ 05:57, thiamine 100 mg BID after from 05/17/25 21:00 to 06/16/25 20:59 ? Ativan for breakthrough seizures ? Folic acid ? [facility] protocol -Neurology consulted Dr. Guillen, appreciate recommendations. #Hypertension ?Resume amlodipine as taken at home Plan -Amlodipine 10 mg PO once daily -Holding Lisinopril as patient is normal-tensive. Health Maintenance: Disposition: Telemetry, CIMT protocol, Wernicke encephalopathy Fluids: LR Feeding: Low-sodium Thrombo prophylaxis: Lovenox Gastric Ulcer prophylaxis: None CODE STATUS: Full code Case discussed with my attending Dr. Vic Currie MD PGY-2 Shahnaz Burkett, [facility] [place] Attending Provider Attestation/Addendum I have discussed and was present for the essential components of the history, physical examination, diagnosis, and treatment plan with the resident. I agree with the patient's care as documented by the resident and amended herein by me. Tanmay Ho DO. Although this document has been carefully reviewed, there may still be some phonetic and other typographical errors. These errors are purely grammatical due to imperfections in the software program and should not be construed in any way to compromise the substance of the patient's medical care during this visit.
--- NOTE | 2025-05-12 15:26 | PD.RESPRO ---
Documentation for date of: 05/12/25 Subjective Subjective Interval history: Patient is a 60 y/o M with PMHx of HTN admitted yesterday for new onset seizures, alcoholic seizures, and possible Wernic Exam Vital Signs Temp Pulse Resp BP Pulse Ox O2 Del Method 98.8 F 74 16 135/79 H 98 Room Air 05/12/25 12:00 05/12/25 12:00 05/12/25 12:00 05/12/25 12:00 05/12/25 12:00 05/12/25 12:00 Objective Labs 05/12/25 05:08 05/12/25 05:08 Labs: Laboratory Results - last 24 hr 05/11/25 05/11/25 05/12/25 17:05 18:08 05:08 WBC 11.0 H RBC 4.56 Hgb 14.4 Hct 40.6 L MCV 89 MCH 31.6 MCHC 35.5 RDW Std Deviation 40.9 Plt Count 218 D Neut % (Auto) 78 Lymph % (Auto) 10 [place] % (Auto) 11 Eos % (Auto) 1 Baso % (Auto) 1 Neut # (Auto) 8.5 H Lymph # (Auto) 1.1 [place] # (Auto) 1.2 H Eos # (Auto) 0.1 Baso # (Auto) 0.1 Immature Gran # (Auto) 0.04 H Absolute Nucleated RBC 0.00 Immature Gran % 0 Nucleated RBC % 0 Sodium 137 Potassium 3.5 D Chloride 108 H Carbon Dioxide 22.7 Anion Gap 6 L BUN 8 L Creatinine 0.9 Estim Creat Clear Calc 89.0 eGFR > 60 BUN/Creatinine Ratio 9 L Glucose 112 H Calculated Osmolality 273 L Lactic Acid 1.3 Calcium 8.9 Corrected Calcium 8.9 Phosphorus 3.0 Magnesium 2.2 1.9 Total Bilirubin 1.7 H D AST 48 H ALT 30 Alkaline Phosphatase 77 Total Protein 6.6 Albumin 4.2 D Globulin 2.4 Albumin/Globulin Ratio 1.8 Ur Collection Type Clean Catch Urine Color Lt-Yellow Urine Clarity Hazy Urine pH 5.5 Ur Specific [place] 1.025 Urine Protein 1+ A Urine Glucose (UA) Negative Urine Ketones Trace Urine Blood 1+ A Urine Nitrite Negative Urine Bilirubin Negative Urine Urobilinogen (Auto) Negative Ur Leukocyte Esterase Negative Urine RBC 19 H Urine WBC 4 Ur Squamous Epith Cells 0 Amorphous Crystals Present A Urine Bacteria None Urine Sperm Present A Ur Culture Indicated? Not Indicated Urine Opiates Screen Negative Urine Fentanyl Screen Negative Ur Barbiturates Screen Negative U Amphetamin/Meth Scrn Negative U Benzodiazepines Scrn Negative U Cocaine Metab Screen Negative U Marijuana (THC) Screen Negative ABG Interpretation ABG results: 05/11/25 14:35 VBG pH 7.29 L VBG pCO2 35 L VBG pO2 77 H VBG Base Excess -9 L Quality Measures Quality Measures VTE prophylaxis (Lovenox 40 mg ) Assessment & Plan Problem List (1) New onset seizure: Status: Acute (2) Alcohol withdrawal seizure: Qualifiers: Complication of substance-induced condition: uncomplicated Qualified Code(s): F10.930 - Alcohol use, unspecified with withdrawal, uncomplicated; R56.9 - Unspecified convulsions Status: Acute (3) Wernicke encephalopathy: Status: Acute Assessment Current Active Medications: Generic Name Dose Route Start Last Admin Trade Name Freq PRN Reason Stop Dose Admin Acetaminophen 650 mg 05/11/25 19:51 Acetaminophen 325 Mg Tablet PO 06/10/25 19:50 Q6H PRN Fever >100.4 Acetaminophen 650 mg 05/11/25 19:51 Acetaminophen 325 Mg Tablet PO 06/10/25 19:50 Q6H PRN PAIN SCALE 1-3 (mild Amlodipine Besylate 10 mg 05/12/25 09:00 05/12/25 09:21 Amlodipine Besylate 5 Mg Tablet PO 06/11/25 08:59 10 mg QDAY NEFTALI Administration Enoxaparin Sodium 40 mg 05/12/25 09:00 05/12/25 09:21 Enoxaparin Sod Inj 40 Mg/0.4 Ml Syringe SC 05/26/25 08:59 40 mg QDAY NEFTALI Administration Folic Acid 1 mg 05/11/25 21:00 05/12/25 09:21 Folic Acid 1 Mg Tablet PO 05/16/25 20:59 1 mg BID NEFTALI Administration Lactated Ringer's 1,000 mls @ 125 mls/hr 05/11/25 20:00 05/12/25 14:44 Lactated Ringers IV 06/10/25 19:59 125 mls/hr .Q8H NEFTALI Administration Thiamine HCl 500 mg/ Sodium 105 mls @ 210 mls/hr 05/12/25 14:00 05/12/25 14:32 Chloride IV 05/17/25 15:00 210 mls/hr TID NEFTALI Administration Lorazepam 0.5 mg 05/11/25 20:01 Lorazepam 2 Mg/Ml Vial IV 05/16/25 20:00 Q2HR PRN CIWA SCORE 7-13 Lorazepam 1 mg 05/11/25 20:01 Lorazepam 2 Mg/Ml Vial IV 05/16/25 20:00 Q2HR PRN CIWA SCORE 14-19 Lorazepam 2 mg 05/11/25 20:01 Lorazepam 2 Mg/Ml Vial IV 05/16/25 20:00 Q2HR PRN CIWA SCORE 20-25 Lorazepam 0.5 mg 05/11/25 20:01 Lorazepam 0.5 Mg Tablet PO 05/16/25 20:00 Q4HR PRN CIWA Score 2-6 Lorazepam 1 mg 05/11/25 20:34 Lorazepam 2 Mg/Ml Vial IVP Q15MIN PRN Breakthrough seizures Ondansetron HCl 4 mg 05/11/25 19:51 Ondansetron Inj 2 Mg/Ml Inj 2 Ml IVP 06/10/25 19:50 Q6H PRN NAUSEA OR VOMITING Protocol Sennosides 1 tab 05/12/25 09:00 05/12/25 09:21 Senna Tablet PO 06/11/25 08:59 1 tab QDAY NEFTALI Administration Protocol Thiamine HCl 100 mg 05/17/25 21:00 Thiamine 100 Mg Tablet PO 06/16/25 20:59 BID NEFTALI
--- NOTE | 2025-05-12 18:09 | XR_ITS ---
Examination: Abdomen sonogram, Limited Date and time of exam: May 12, 2025, 1817 hours INDICATIONS: Alcohol related seizure yesterday, diagnoses primary hepatocellular disease/cirrhosis Technique: Real-time quinn scale transabdominal sonographic images of the upper abdomen obtained. Findings: Normal gallbladder. Normal common bile duct 0.3 cm Pancreatic head 3.4 cm Liver 16.7 cm smooth contour fatty infiltration no focal liver lesions Normal hepatopedal portal venous Patent IVC IMPRESSION: Normal gallbladder. Mild hepatomegaly with fatty infiltration No findings diagnostic for cirrhosis However, consider ultrasound liver elastography to best assess for liver tissue stiffness average
--- NOTE | 2025-05-12 23:38 | PD.NEUROPROG ---
Documentation for date of: 05/12/25 Subjective Subjective Interval history: Patient was seen in telemetry today, no sz reported after admission. Exam - Neurology Vital Signs Temp Pulse Resp BP Pulse Ox O2 Del Method 98.0 F 87 17 137/89 H 98 Room Air 05/12/25 20:00 05/12/25 20:00 05/12/25 20:00 05/12/25 20:00 05/12/25 20:00 05/12/25 20:00 Narrative Exam GENERAL APPEARANCE: Well hydrated, well-nourished in no acute distress. HEENT: Normocephalic, atraumatic, extraocular movements intact. Pupils: Equal reacting to light and accommodation NECK: Supple, no JVD or bruits. CARDIOVASULAR: Heart: S1, S2 heard, regular without S3-S4 or murmur no rubs or gallops. LUNGS/CHEST: Clear to auscultation bilaterally. No rails, rhonchi, or wheezing. Normal inspection. ABDOMEN: Soft, nontender, with normal bowel sounds. No pulsatile masses. No rebound, rigidity, or guarding. Normal inspection and palpation. EXTREMITIES: Normal inspection and palpation. No edema, clubbing or cyanosis. SKIN: Warm and dry without rashes. Normal inspection. MUSCULOSKELETAL: No cervical, thoracic, lumbar or midline bony tenderness. Normal inspection. NEURO: Alert, awake and oriented x3. Cranial nerves: II through XII grossly intact. Speech and language: Normal with no dysarthria or dysphasia. Motor system: Tone and bulk: Normal: Strength: 5 out of 5 in all 4 extremities; No pronator drift noted. Deep tendon reflexes: 2+ bilaterally symmetrical. Plantar reflex: Downgoing bilaterally. Sensory system: Intact to all modalities of sensation bilaterally. Coordination: Intact to [id number] and [id number] test bilaterally. No ataxia, no dysmetria, or dysdiadochokinesia noted. No intention tremors noted. Gait: not tested. No signs of meningeal irritation noted. PSYCHIATRIC: Normal mood and affect. Objective Labs 05/12/25 05:08 05/12/25 05:08 Labs: Laboratory Results - last 24 hr 05/11/25 05/12/25 18:08 05:08 WBC 11.0 H RBC 4.56 Hgb 14.4 Hct 40.6 L MCV 89 MCH 31.6 MCHC 35.5 RDW Std Deviation 40.9 Plt Count 218 D Neut % (Auto) 78 Lymph % (Auto) 10 [place] % (Auto) 11 Eos % (Auto) 1 Baso % (Auto) 1 Neut # (Auto) 8.5 H Lymph # (Auto) 1.1 [place] # (Auto) 1.2 H Eos # (Auto) 0.1 Baso # (Auto) 0.1 Immature Gran # (Auto) 0.04 H Absolute Nucleated RBC 0.00 Immature Gran % 0 Nucleated RBC % 0 Sodium 137 Potassium 3.5 D Chloride 108 H Carbon Dioxide 22.7 Anion Gap 6 L BUN 8 L Creatinine 0.9 Estim Creat Clear Calc 89.0 eGFR > 60 BUN/Creatinine Ratio 9 L Glucose 112 H Calculated Osmolality 273 L Calcium 8.9 Corrected Calcium 8.9 Phosphorus 3.0 Magnesium 2.2 1.9 Total Bilirubin 1.7 H D AST 48 H ALT 30 Alkaline Phosphatase 77 Total Protein 6.6 Albumin 4.2 D Globulin 2.4 Albumin/Globulin Ratio 1.8 ABG Interpretation ABG results: 05/11/25 14:35 VBG pH 7.29 L VBG pCO2 35 L VBG pO2 77 H VBG Base Excess -9 L Assessment & Plan Assessment and plan (1) New onset seizure: Status: Acute Assessment and plan: Fu with EEG (2) Alcohol withdrawal seizure: Qualifiers: Complication of substance-induced condition: uncomplicated Qualified Code(s): F10.930 - Alcohol use, unspecified with withdrawal, uncomplicated; R56.9 - Unspecified convulsions Status: Acute Assessment and plan: continue with Benzos, sz precaution and ativan as needed (3) Wernicke encephalopathy: Status: Acute Assessment and plan: continue with Thiamine and folate.
[2025-05-13] VITALS (9 sets, daily range): BP systolic 121–168; BP diastolic 59–99; PULSE 71–89; RESP 12–99; TEMP 36.1–37.2; O2SAT 97–99
--- NOTE | 2025-05-13 02:04 | PC.NURSE ---
[facility].
[2025-05-13] MEDS: THIAMINE INJ 500 MG in SODIUM CHLORIDE 0.9% 100 ML 210 MG IV ×2 (05:13→12:22)
[2025-05-13 05:51] LABS: Basophils # (Auto) 0.0 Thou/mm3 (0.0-0.2); Basophils % (Auto) 1 % (0-2.5); Eosinophils # (Auto) 0.1 Thou/mm3 (0.0-0.5); Eosinophils % (Auto) 1 % (0-10); Hematocrit 40.9 % (41.0-53.0); Hemoglobin 14.2 g/dL (13.5-16.0); Immature Granulocytes Auto 0.02 Thou/mm3 (0.00-0.00); Lymphocytes # (Auto) 1.1 Thou/mm3 (1.0-4.8); Lymphocytes % (Auto) 21 % (10-50); Mean Corpuscular HGB Conc 34.7 g/dl (31.0-37.0); Mean Corpuscular Hemoglobin 31.7 pg (25.0-35.0); Mean Corpuscular Volume 91 fL (80-100); Monocytes # (Auto) 0.7 Thou/mm3 (0.0-0.8); Monocytes % (Auto) 12 % (0-12); Neutrophils # (Auto) 3.5 Thou/mm3 (1.8-7.7); Neutrophils % (Auto) 65 % (37-80); Nucleated Red Blood Cell # 0.00 Thou/mm3 (0.00-0.00); Nucleated Red Blood Cell % 0 /100 WBC (0); Platelet Count 168 Thou/mm3 (140-440); RDW Standard Deviation 41.5 fL (35.1-43.9); Red Blood Count 4.48 Miln/mm3 (4.50-5.90); White Blood Count 5.4 Thou/mm3 (3.8-10.6)
[2025-05-13 06:37] LABS: Alanine Aminotransferase 31 U/L (10-49); Albumin, Serum 4.0 gm/dL (3.4-4.8); Albumin/Globulin Ratio 1.7 (1.2-2.2); Alkaline Phosphatase 78 U/L (46-116); Anion Gap 8 (7-16); Aspartate Amino Transferase 83 U/L (0-34); BUN/Creatinine Ratio 8 Ratio (12-20); Bilirubin,Total 1.1 mg/dL (0.3-1.2); Blood Urea Nitrogen 6 mg/dL (9-23); Calcium 8.5 mg/dL (8.3-10.6); Calcium (Corrected) 8.5 mg/dL (8.5-10.1); Carbon Dioxide 25.1 mMol/L (20.0-31.0); Chloride 107 mMol/L (98-107); Creatinine (Component) 0.8 mg/dL (0.6-1.3); Estimated Creatinine Clearance 100.1 mL/min (>60); Globulin 2.4 gm/dL (2.3-3.5); Glucose 122 mg/dL (74-106); Magnesium 2.0 mg/dL (1.6-2.6); Osmolality,Calculated 278 (275-295); Phosphorous 2.8 mg/dL (2.4-5.1); Potassium 4.2 mMol/L (3.4-5.1); Sodium 140 mMol/L (136-145); Total Protein 6.4 gm/dL (5.7-8.2); eGFR > 60 See Note
[2025-05-13] MEDS: ENOXAPARIN SOD INJ 40 MG/0.4 ML SYRINGE SC (08:53)
[2025-05-13] MEDS: FOLIC ACID 1 MG TABLET PO ×2 (08:54→20:42)
--- NOTE | 2025-05-13 10:20 | PC.SS ---
Late note 05-12-25: SS met with patient regarding his d/c plan.? Pt is alert/oriented.? Pt was admitted for Alcohol Seizures.? Pt confirmed demographic and contact information is correct on facesheet.? Pt resides with .? Pt ambulates independently without assistance or DME.? Pt is ok with all ADLs.? 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 Patient?s pharmacy of choice is [facility].? Pt named his Cass Kidd medical decision maker if he is unable.? Patient?s choice is to return home upon d/c.? Pt states he last consumed alcohol 2 days ago.? Pt states he is aware of AA meetings.? Pt states he last followed up with PCP 6 months ago.? Pt states not diabetic and is not on dialysis. D/C plan:? Return home Next of Kin:? Cass Kidd, , phone# [phone] PCP:? Dr. Carl Gautam from [place] Address:? Correct on facesheet
--- NOTE | 2025-05-13 11:39 | PC.SS ---
SS follow up note; Patient is pending an EEG. Patient will return home when medically cleared.
--- NOTE | 2025-05-13 14:18 | PD.RESDS ---
Planned Discharge Date 05/13/25 DS: Providers Provider Date of admission: 05/11/25 19:51 Primary care physician: Carl Gautam MD Admitting Provider: Brad Beasley MD Attending Provider on Admission: Gerry Rodriguez MD Consults: 05/12/25 11:10 Consult to Neurology / Tele-Neurology Stat Comment: new onset of seizure likely secondary to EEG Consulting Provider: Dino Guillen Attending Provider on DC: Sherry Nava Discharging Provider: Sherry Nava Anticipated date of discharge: 05/13/25 DS: Diagnosis Discharge Diagnosis (1) Alcohol withdrawal seizure: Status: Acute Qualifiers: Complication of substance-induced condition: uncomplicated Qualified Code(s): F10.930 - Alcohol use, unspecified with withdrawal, uncomplicated; R56.9 - Unspecified convulsions (2) New onset seizure: Status: Acute (3) Wernicke encephalopathy: Status: Acute Hospital Course Hospital Course Hospital course: ER Course: Patient is 60 year old male with history of hypertension who originally presented to the ED on 05/11 after experiencing a witnessed seizure at work that was witnessed by colleagues. Upon arrival, the patient was slightly postictal, confused and disoriented, and was speaking incoherently. The patient reported no known history of seizures. There were no other symptoms or complaints reported at that time. Patient denied recent illness or trauma. Imaging: CXR completed 05/11 demonstrated normal findings. ECG completed 05/11 demonstrated sinus tachycardia with incomplete right bundle branch block. Head CT completed 05/11 demonstrated no acute changes Medications: Phenytoin Sodium 1,000 mg/ (Sodium Chloride) 120 mls @ 240 mls/hr IV X1 ONE Stop: 05/11/25 18:59 Diazepam (Diazepam 5 Mg Tablet) 10 mg PO X1 ONE Stop: 05/11/25 18:15 Thiamine HCl 250 mg/ Sodium (Chloride) 102.5 mls @ 205 mls/hr IV X1 ONE Stop: 05/11/25 18:45 Hospital Course: Patient is 60 y/o male with a PMHx of HTN who was recently started on several medications including Amitriptyline, Amlodipine and Lisinopril by PCP. Patient is an overnight admit 05/11 for new onset seizure likely secondary alcoholic-related seizure and possible Wernicke encephalopathy. Patient stated his last drink was 2 days ago,thus greater than 48 hours. Patient is cooperative and appears to be in no acute distress. Alert and Orientated. Patient recalls seizure episode yesterday, where he fell on all four extremities shaking at work. Positive for post ictal state. Denied urinary incontinence. He is unaware of how long it lasted and continued to deny previous seizure episodes. Patient stated that he is feeling fine today. Patient's nystagmus has resolved. Patient confirms that he drinks 3-4 beers 3 to 4 times a week. Patient states that he drinks half a glass of vodka, but is not clear about how often. Patient denies N/V, visual, auditory, and tactile disturbances, and anxiety. Imaging: Liver ultrasound completed 05/12 demonstrated mild hepatomegaly with fatty infiltration. Recommendation made for possible liver elastography. Consultation: Neurology consult completed 05/12 demonstrated normal findings. EEG completed and results pending. On evaluation today, the patient stated that he is feeling a little better and that he is ready to go home. Patient continued to deny seizure activity since the initial episode. Patient demonstrated full upper and lower extremity strength. Patient continued to deny N/V, visual, auditory, tactile disturbances, and anxiety. Medications: Acetaminophen (Acetaminophen 325 Mg Tablet) 650 mg PO Q6H PRN PRN Reason: Fever >100.4 Start: 05/11/25 19:51 Stop: 06/10/25 19:50 Acetaminophen (Acetaminophen 325 Mg Tablet) 650 mg PO Q6H PRN PRN Reason: PAIN SCALE 1-3 (mild) Start: 05/11/25 19:51 Stop: 06/10/25 19:50 Enoxaparin Sodium (Enoxaparin Sod Inj 40 Mg/0.4 Ml Syringe) 40 mg SC QDAY [facility] Start: 05/12/25 09:00 Stop: 05/26/25 08:59 Lactated Ringer's (Lactated Ringers) 1,000 mls @ 125 mls/hr IV .Q8H NEFTALI Start: 05/01/25 20:00 Stop: 06/10/25 19:59 Thiamine HCl 500 mg/ Sodium (Chloride) 105 mls @ 205 mls/hr IV TID NEFTALI Start: 05/12/25 14:00 Stop: 05/13/25 21:59 Lorazepam 2 mg/ml vial 0.5 mg IV Q2HR PRN [facility] 7-13 Start: 05/11/25 20:01 Stop: 05/16/25 20:00 Lorazepam 2 mg/ml vial 1.0 mg IV Q2HR PRN [facility] 14-19 Start: 05/11/25 20:01 Stop: 05/16/25 20:00 Lorazepam 2 mg/ml vial 2 mg IV Q2HR PRN [facility] Start: 05/11/25 20:01 Stop: 05/16/25 20:00 Lorazepam 0.5 mg tablet 0.5 mg PO Q4HR PRN [facility] 2-6 Start: 05/11/25 20:01 Stop: 05/16/25 20:00 Lorazepam 2 mg/ml vial 1 mg IVP Q14MIN PRN Reason: Breakthrough seizures Start: 05/11/25 Start: 2033 Ondansetron HCl (Ondansetron Inj 2 Mg/Ml Inj 2 Ml) 4 mg IVP Q6H PRN; Protocol PRN Reason: NAUSEA OR VOMITING Start: 05/11/25 19:51 Stop: 06/10/25 19:50 Sennosides (Senna Tablet) 1 tab PO QDAY NEFTALI; Protocol Start: 05/12/25 09:00 Stop: 06/11/25 08:59 Thiamine HCl 100 mg tablet BID PO NEFTALI Start: 05/17/25 21:00 Stop: 06/16/25 20:59 Instructions: -Please continue all medication as prescribed, no changes made. -Please follow up with your primary care provider within one week of discharge -If your symptoms worsen,please seek immediate medical attention and return to your nearest emergency room -If you do not have a primary care provider, you may follow up at the [facility] at [address], [place] [address], #Alcohol Withdrawal, seizure like activity #Alcohol Use Disorder #Wernicke encephalopathy Plan: ? Thiamine IV 500 mg 3 times daily X 5 days started 05/12/25 @ 05:57, thiamine 100 mg BID after from 05/17/25 21:00 to 06/16/25 20:59 ? Ativan for breakthrough seizures ? Folic acid ? [facility] protocol #Hypertension ?Resume amlodipine as taken at home Plan: -Amlodipine 10 mg PO once daily -Holding Lisinopril as patient is normal-tensive Status at Discharge Cognitive/behavioral status at discharge: Patient is AO x 4 Functional status at discharge: independent ambulation Overall status at discharge: patient is back to baseline Time Spent with Patient Time attestation: Total time spent providing and/or coordinating discharge services: Time spent: Greater than 30 minutes Quality: AMI Clinical Trial Participant: No Contraindication for Aspirin: Treatment not indicated Contraindications to PCI Procedure: Treatment not indicated Contraindication for No Fibrinolytic Therapy: Treatment not indicated Contraindication for Statin: Treatment not indicated Quality: Stroke Reason for No Antithrombotic at DC: Treatment not indicated Reason for No Anticoagulant at DC: Treatment not indicated Contraindication Not Initiating IV-Tpa: Treatment not indicated Contraindication Antithromb by Day Two: Treatment not indicated Contraindication No Statin at DC: Treatment not indicated Rehab Services Assessed: Physical therapy assessment Quality: VTE Contraindication No VTE Prophylaxis: Treatment not indicated Contraindication No Overlap Therapy: Treatment not indicated Is this test being ordered to rule out VTE?: No Deep Vein Thrombosis/Pulmonary Embolism Present on Admission: No Exam Vital Signs Temp Pulse Resp BP Pulse Ox O2 Del Method 97.0 F 80 20 121/86 H 97 Room Air 05/13/25 12:00 05/13/25 12:00 05/13/25 12:00 05/13/25 12:00 05/13/25 12:05/13/25 12:00 Narrative Exam General Appearance: Alert & Oriented X3, well-nourished male who is lying in bed in no acute distress. HEENT: Skull symmetrical and atraumatic. Conjunctivae pin and moist. Pupils equal, round, reactive to light and accommodation (PERRL). External ear without lesion or discharge. Straight, nares patient, mucosa pink, no discharge. No thyroid nodule appreciated. No cervical lymphadenopathy. Cardio: Normal Rate and Rhythm with S1 and S2 heart sounds. No murmurs or extra heart sounds auscultated. No bruits on carotid auscultation. No peripheral edema or cyanosis. Lungs: Symmetric with good expansion. Chest and back non-tender. Breath sounds vesicular without crackles, wheezing or rhonchi Abdomen: Non-tender, Non-distended, Normal Reactive Bowel Sounds Neuro: Alert, cooperative, oriented to person, place, and time. Speech clear. CN grossly intact. Upper motor strength 5/5 and Lower motor strength 5/5. Sensation intact. Discharge Plan Plan Patient Disposition: HOME (Self Care) Prescriptions/Referrals Prescriptions/Med Rec: No Action amlodipine 10 mg tablet 10 mg PO QDAY Qty: 30 0RF Patient Comments: pt states it's been a few weeks since he's taken any lisinopril 10 mg tablet 10 mg PO QDAY Patient Comments: last taken was few weeks ago amitriptyline 25 mg tablet 25 mg PO QDAY Patient Comments: pt has not taken for a few weeks Referrals: Carl Gautam MD [Primary Care Provider] - Patient/Caregiver Discharge Instructions Discharge Activity: as per physical therapy Print Language: Guamanian Stand Alone Forms: Estefania Award Info., Patient Portal Info Letter Quality Discharge Quality Measures VTE prophylaxis (Lovenox 40 mg SC QD)
--- NOTE | 2025-05-13 17:26 | PD.RESPRO ---
Documentation for date of: 05/13/25 Subjective Subjective Interval history: Senior attestation: No overnight events reported for patient. Patient admitted for alcohol withdrawal and likely is seizure witnessed by patient's . Patient pending EEG. Expected patient to be discharged within the next 24 hours after final recommendations neurology. CIWA 0. No further ativan given. Continue thiamine. Patient stated that he is feeling a little better today. Patient continued to deny seizure-like activity. Patient continued to deny N/V, visual, auditory, and tactile disturbances, and anxiety. Patient stated that he feels ready to go home. Neurology consult completed with Dr. Morrow yesterday. No abnormal findings documented. EEG completed; pending result. Continued monitoring. Liver ultrasound yesterday demonstraded mild hepatomegaly with fatty infiltration. Recommendation made for possible liver elastography. Exam Vital Signs Temp Pulse Resp BP Pulse Ox O2 Del Method 98.5 F 80 16 122/82 98 Room Air 05/13/25 16:05/13/25 16:05/13/25 16:00 05/13/25 16:05/13/25 16:05/13/25 16:00 Narrative Exam General Appearance: Alert & Oriented X3, well-nourished male who is lying in bed in no acute distress. HEENT: Skull symmetrical and atraumatic. Conjunctivae pin and moist. Pupils equal, round, reactive to light and accommodation (PERRL). External ear without lesion or discharge. Straight, nares patient, mucosa pink, no discharge. No thyroid nodule appreciated. No cervical lymphadenopathy. Cardio: Normal Rate and Rhythm with S1 and S2 heart sounds. No murmurs or extra heart sounds auscultated. No bruits on carotid auscultation. No peripheral edema or cyanosis. Lungs: Symmetric with good expansion. Chest and back non-tender. Breath sounds vesicular without crackles, wheezing or rhonchi Abdomen: Non-tender, Non-distended, Normal Reactive Bowel Sounds Neuro: Alert, cooperative, oriented to person, place, and time. Speech clear. CN grossly intact. Upper motor strength 5/5 and Lower motor strength 5/5. Sensation intact. Objective Labs 05/13/25 05:05 05/13/25 05:05 Labs: Laboratory Results - last 24 hr 05/13/25 05:05 WBC 5.4 D RBC 4.48 L Hgb 14.2 Hct 40.9 L MCV 91 MCH 31.7 MCHC 34.7 RDW Std Deviation 41.5 Plt Count 168 D Neut % (Auto) 65 Lymph % (Auto) 21 [place] % (Auto) 12 Eos % (Auto) 1 Baso % (Auto) 1 Neut # (Auto) 3.5 Lymph # (Auto) 1.1 [place] # (Auto) 0.7 Eos # (Auto) 0.1 Baso # (Auto) 0.0 Immature Gran # (Auto) 0.02 H Absolute Nucleated RBC 0.00 Immature Gran % 0 Nucleated RBC % 0 Sodium 140 Potassium 4.2 D Chloride 107 Carbon Dioxide 25.1 Anion Gap 8 BUN 6 L Creatinine 0.8 Estim Creat Clear Calc 100.1 eGFR > 60 BUN/Creatinine Ratio 8 L Glucose 122 H Calculated Osmolality 278 Calcium 8.5 Corrected Calcium 8.5 Phosphorus 2.8 Magnesium 2.0 Total Bilirubin 1.1 D AST 83 H ALT 31 Alkaline Phosphatase 78 Total Protein 6.4 Albumin 4.0 Globulin 2.4 Albumin/Globulin Ratio 1.7 ABG Interpretation ABG results: 05/11/25 14:35 VBG pH 7.29 L VBG pCO2 35 L VBG pO2 77 H VBG Base Excess -9 L Quality Measures Quality Measures VTE prophylaxis (Lovenox 40 mg SC QD) Assessment & Plan Problem List (1) Alcohol withdrawal seizure: Qualifiers: Complication of substance-induced condition: uncomplicated Qualified Code(s): F10.930 - Alcohol use, unspecified with withdrawal, uncomplicated; R56.9 - Unspecified convulsions Status: Acute (2) New onset seizure: Status: Acute (3) Wernicke encephalopathy: Status: Acute Assessment Current Active Medications: Generic Name Dose Route Start Last Admin Trade Name Freq PRN Reason Stop Dose Admin Acetaminophen 650 mg 05/11/25 19:51 Acetaminophen 325 Mg Tablet PO 06/10/25 19:50 Q6H PRN Fever >100.4 Acetaminophen 650 mg 05/11/25 19:51 Acetaminophen 325 Mg Tablet PO 06/10/25 19:50 Q6H PRN PAIN SCALE 1-3 (mild Amlodipine Besylate 10 mg 05/12/25 09:00 05/13/25 08:54 Amlodipine Besylate 5 Mg Tablet PO 06/11/25 08:59 10 mg QDAY NEFTALI Administration Enoxaparin Sodium 40 mg 05/12/25 09:00 05/13/25 08:53 Enoxaparin Sod Inj 40 Mg/0.4 Ml Syringe SC 05/26/25 08:59 40 mg QDAY NEFTALI Administration Folic Acid 1 mg 05/11/25 21:00 05/13/25 08:54 Folic Acid 1 Mg Tablet PO 05/16/25 20:59 1 mg BID NEFTALI Administration Thiamine HCl 500 mg/ Sodium 105 mls @ 210 mls/hr 05/12/25 14:00 05/13/25 12:22 Chloride IV 05/17/25 15:00 210 mls/hr TID NEFTALI Administration Lorazepam 0.5 mg 05/11/25 20:01 Lorazepam 2 Mg/Ml Vial IV 05/16/25 20:00 Q2HR PRN CIWA SCORE 7-13 Lorazepam 1 mg 05/11/25 20:01 Lorazepam 2 Mg/Ml Vial IV 05/16/25 20:00 Q2HR PRN CIWA SCORE 14-19 Lorazepam 2 mg 05/11/25 20:01 Lorazepam 2 Mg/Ml Vial IV 05/16/25 20:00 Q2HR PRN CIWA SCORE 20-25 Lorazepam 0.5 mg 05/11/25 20:01 Lorazepam 0.5 Mg Tablet PO 05/16/25 20:00 Q4HR PRN CIWA Score 2-6 Lorazepam 1 mg 05/11/25 20:34 Lorazepam 2 Mg/Ml Vial IVP Q15MIN PRN Breakthrough seizures Ondansetron HCl 4 mg 05/11/25 19:51 Ondansetron Inj 2 Mg/Ml Inj 2 Ml IVP 06/10/25 19:50 Q6H PRN NAUSEA OR VOMITING Protocol Sennosides 1 tab 05/12/25 09:00 05/13/25 08:54 Senna Tablet PO 06/11/25 08:59 1 tab QDAY NEFTALI Administration Protocol Thiamine HCl 100 mg 05/17/25 21:00 Thiamine 100 Mg Tablet PO 06/16/25 20:59 BID NEFTALI Plan Patient is a 60-year-old male with past medical history of hypertension who presented to the ED with seizure activity. Patient admitted for alcohol-related seizures and possible Wernicke encephalopathy. #Alcohol Withdrawal, seizure like activity #Alcohol Use Disorder #Wernicke encephalopathy #Lactic acidosis?resolved Patient noticed that his arms and legs were shaking at work. Patient has no recollection after this only remembers waking up in the ER. On arrival, the patient was slightly postictal, confused and disoriented, and was speaking incoherently. In the ED patient received diazepam, phenytoin Patient does drink significant amounts of alcohol beers and vodka could not state the amount Patient does exhibit bilateral full upper and lower extremity strength on physical exam today. Patient does not exhibit tremors or nystagmus on physical exam today. Lactic acid corrected to 1.3 from 9.2 Plan: - Thiamine IV 250 mg given 05/11/25 @ 19:29 and 20:14 ? Thiamine IV 500 mg 3 times daily X 5 days started 05/12/25 @ 05:57, thiamine 100 mg BID after from 05/17/25 21:00 to 06/16/25 20:59 ? Ativan for breakthrough seizures ? Folic acid ? [facility] protocol -Neurology consulted completed with Dr. Guillen, appreciate recommendations. #Hypertension ?Resume amlodipine as taken at home Plan -Amlodipine 10 mg PO once daily -Holding Lisinopril as patient is normal-tensive. Health Maintenance: Disposition: Telemetry, [facility] protocol, Wernicke encephalopathy Fluids: LR Feeding: Low-sodium Thrombo prophylaxis: Lovenox Gastric Ulcer prophylaxis: None CODE STATUS: Full code Case discussed with my attending Dr. Vic Currie MD PGY-2 Shahnza Burkett OMS-IV - The patient's plan was discussed with attending Dr. Vic Currie MD PGY2 Internal Medicine Attending Provider Attestation/Addendum I have discussed and was present for the essential components of the history, physical examination, diagnosis, and treatment plan with the resident. I agree with the patient's care as documented by the resident and amended herein by me. Tanmay Ho DO. Pending EEG read then can go home pending specialist recommendations Although this document has been carefully reviewed, there may still be some phonetic and other typographical errors. These errors are purely grammatical due to imperfections in the software program and should not be construed in any way to compromise the substance of the patient's medical care during this visit.
--- NOTE | 2025-05-13 19:25 | PC.NURSE ---
At time of change of shift, pt noted that Dr Guillen indicated pt may be discharged; confirmed with MD whom happen to be walking by the hallway. Per MD, pt may be discharged if approved by hospitalist. Pt to follow up in [address] Hunter notified of pt's request to be discharged promptly and Dr. Guillen recommendations. Dr Hunter noted she would review chart and make determination with regards to discharge. MD noted she would be up to see pt or f/u with RN.
--- NOTE | 2025-05-14 00:23 | PD.RESCONSUL ---
HPI Data of Consult Requesting Physician: Gerry Rodriguez MD Admitting Provider: Brad Beasley MD Attending Provider: Gerry Rodriguez MD Primary Care Provider: Carl Gautam MD Consult Narrative History of present illness: Interval events: Patient seen at bedside, reported no new concerns. No seizures during admission cc:: cc: Gerry Rodriguez MD Review of Systems Review of Systems Narrative Review of Systems: Constitutional: Denies fevers, chills, weight loss or gain Skin: Denies rashes Eyes: Denies change in vision, double vision HENT: Denies rhinorrhea, nasal congestion, sore throat, change in voice Respiratory: Denies cough, shortness of breath Cardiovascular: Denies palpitations, chest tightness or pain GI: Denies change in appetite, nausea, vomiting MSK: Denies acute pain in joints or muscles Neurological: Denies headache, dizziness, paresthesias, falls Exam Vital Signs Temp Pulse Resp BP Pulse Ox O2 Del Method 98.4 F 80 14 157/95 H 99 Room Air 05/13/25 20:00 05/13/25 21:07 05/13/25 21:07 05/13/25 20:00 05/13/25 20:00 05/13/25 20:00 Narrative Exam General: No acute distress, well nourished Eye: PERRL, EOMI, normal conjunctiva, no scleral icterus HENT: Normocephalic, atraumatic, clear tympanic membranes, normal hearing, moist oral mucosa Neck: Supple, non-tender Lungs: Non-labored respirations, symmetric chest rise Heart: Peripheral pulses intact bilaterally Abdomen: Non-distended Musculoskeletal: Normal range of motion and strength Skin: Skin is warm, dry, no rashes or lesions. Neurologic: Alert, awake and oriented x3. Cranial nerves: II through XII grossly intact. Speech and language: Normal with no dysarthria or dysphasia. Motor system: Tone and bulk: Normal: Strength: 5 out of 5 in all 4 extremities; Deep tendon reflexes: 2+ bilaterally symmetrical. Plantar reflex: Downgoing bilaterally. Sensory system: Intact to light touch bilaterally. Coordination: Intact to [id number] and adwq-[id number]-[id number] test bilaterally. No ataxia, no dysmetria, or dysdiadochokinesia noted. No intention tremors noted. Gait: not tested. No signs of meningeal irritation noted. Psychiatric: Cooperative, appropriate mood and affect Results Labs 05/13/25 05:05 05/13/25 05:05 Labs: Short CBC 05/13/25 Range/Units 05:05 WBC 5.4 D (3.8-10.6) Thou/mm3 Hgb 14.2 (13.5-16.0) g/dL Hct 40.9 L (41.0-53.0) % Plt Count 168 D (140-440) Thou/mm3 BMP 05/13/25 05:05 Sodium 140 Potassium 4.2 D Chloride 107 Carbon Dioxide 25.1 BUN 6 L Creatinine 0.8 Glucose 122 H Calcium 8.5 Liver Function 05/13/25 Range/Units 05:05 Total Bilirubin 1.1 D (0.3-1.2) mg/dL AST 83 H (0-34) U/L ALT 31 (10-49) U/L Alkaline Phosphatase 78 (46-116) U/L Albumin 4.0 (3.4-4.8) gm/dL ABG Interpretation ABG results: 05/11/25 14:35 VBG pH 7.29 L VBG pCO2 35 L VBG pO2 77 H VBG Base Excess -9 L Quality Measures Quality Measures VTE prophylaxis (Lovenox 40 mg SC QD) Medications Home Medications and Allergies Home Medications ?Medication ?Instructions ?Recorded ?Confirmed ?Type amitriptyline 25 mg tablet 25 mg PO QDAY 05/12/25 05/12/25 History lisinopril 10 mg tablet 10 mg PO QDAY 05/12/25 05/12/25 History Allergies Allergy/AdvReac Type Severity Reaction Status Date / Time No Known Allergies Allergy Verified 11/24/19 09:48 Visit Medications Discontinued Medications Acetaminophen (Acetaminophen 325 Mg Tablet) 650 mg PO Q6H PRN PRN Reason: Fever >100.4 Stop: 06/10/25 19:50 Acetaminophen (Acetaminophen 325 Mg Tablet) 650 mg PO Q6H PRN PRN Reason: PAIN SCALE 1-3 (mild Stop: 06/10/25 19:50 Amlodipine Besylate (Amlodipine Besylate 5 Mg Tablet) 10 mg PO QDAY [facility] Stop: 06/11/25 08:59 Last Admin: 05/13/25 08:54 Dose: 10 mg Diazepam (Diazepam 5 Mg Tablet) 10 mg PO X1 ONE Stop: 05/11/25 18:15 Last Admin: 05/11/25 19:22 Dose: 10 mg Enoxaparin Sodium (Enoxaparin Sod Inj 40 Mg/0.4 Ml Syringe) 40 mg SC QDAY NEFTALI Stop: 05/26/25 08:59 Last Admin: 05/13/25 08:53 Dose: 40 mg Folic Acid (Folic Acid 1 Mg Tablet) 1 mg PO BID NEFTALI Stop: 05/16/25 20:59 Last Admin: 05/13/25 20:42 Dose: 1 mg Hydralazine HCl (Hydralazine Inj 20 Mg/Ml Vial) 20 mg IVP X1 ONE Stop: 05/11/25 18:56 Last Admin: 05/11/25 19:24 Dose: 20 mg Thiamine HCl 250 mg/ Sodium (Chloride) 102.5 mls @ 205 mls/hr IV X1 ONE Stop: 05/11/25 18:45 Last Infusion: 05/11/25 20:00 Dose: Infused Phenytoin Sodium 1,000 mg/ (Sodium Chloride) 120 mls @ 240 mls/hr IV X1 ONE Stop: 05/11/25 18:59 Last Infusion: 05/11/25 20:15 Dose: Infused Lactated Ringer's (Lactated Ringers) 1,000 mls @ 125 mls/hr IV .Q8H [facility] Stop: 06/10/25 19:59 Last Admin: 05/12/25 14:44 Dose: 125 mls/hr Thiamine HCl 250 mg/ Sodium (Chloride) 102.5 mls @ 205 mls/hr IV X1 ONE Stop: 05/11/25 20:24 Last Infusion: 05/11/25 20:45 Dose: Infused Thiamine HCl 500 mg/ Sodium (Chloride) 105 mls @ 210 mls/hr IV TID [facility] Stop: 05/17/25 14:29 Last Admin: 05/12/25 05:57 Dose: 210 mls/hr Thiamine HCl 500 mg/ Sodium (Chloride) 105 mls @ 210 mls/hr IV TID [facility] Stop: 05/17/25 15:00 Last Admin: 05/13/25 12:22 Dose: 210 mls/hr Lorazepam (Lorazepam 2 Mg/Ml Vial) 0.5 mg IV Q2HR PRN PRN Reason: CIWA SCORE 7-13 Stop: 05/16/25 20:00 Lorazepam (Lorazepam 2 Mg/Ml Vial) 1 mg IV Q2HR PRN PRN Reason: CIWA SCORE 14-19 Stop: 05/16/25 20:00 Lorazepam (Lorazepam 2 Mg/Ml Vial) 2 mg IV Q2HR PRN PRN Reason: CIWA SCORE 20-25 Stop: 05/16/25 20:00 Lorazepam (Lorazepam 0.5 Mg Tablet) 0.5 mg PO Q4HR PRN PRN Reason: CIWA Score 2-6 Stop: 05/16/25 20:00 Lorazepam (Lorazepam 2 Mg/Ml Vial) 1 mg IVP Q15MIN PRN PRN Reason: Breakthrough seizures Ondansetron HCl (Ondansetron Inj 2 Mg/Ml Inj 2 Ml) 4 mg IVP Q6H PRN; Protocol PRN Reason: NAUSEA OR VOMITING Stop: 06/10/25 19:50 Phenytoin Sodium (Phenytoin Inj 50 Mg/Ml Vial 5 Ml) 1,000 mg IV X1 ONE Stop: 05/11/25 18:18 Last Admin: 05/11/25 18:30 Dose: Not Given Potassium Chloride (Potassium Chloride 20 Meq Tabcr) 20 meq PO X1 ONE Stop: 05/12/25 08:31 Last Admin: 05/12/25 09:22 Dose: 20 meq Sennosides (Senna Tablet) 1 tab PO QDAY NEFTALI; Protocol Stop: 06/11/25 08:59 Last Admin: 05/13/25 08:54 Dose: 1 tab Thiamine HCl (Thiamine 100 Mg Tablet) 100 mg PO BID NEFTALI Stop: 06/16/25 20:59 Assessment & Plan Assessment #New onset seizure #Alcohol withdrawal seizure In the setting of chronic alcohol use. No hx of seizure or alcohol withdrawal sx, per patient EEG:unremarkable Consistently scoring 0 on CIWA Plan: Continue thiamine and folate No further recommendations at this time Plan discussed with Dr. Mindy Tse, PGY1 Attending Provider Attestation/Addendum I personally seen and examined the patient at the bedside and I agreed with the resident's findings, assessment and plan of care. Patient developed a seizure secondary to alcohol withdrawal. Do not need to be on antiepileptic drugs. His EEG had more movement artifact, making it harder to interpret. Patient is stable from neurology standpoint for discharge. Stronglye advised about alcohol cessation. Follow-up in 2 weeks
--- NOTE | 2025-05-14 09:15 | ESDS_ITS ---
Planned Discharge Date 05/13/25 DS: Providers Provider Date of admission: 05/11/25 19:51 Primary care physician: Carl Gautam MD Admitting Provider: Brad Beasley MD Attending Provider on Admission: Gerry Rodriguez MD Consults: 05/12/25 11:10 Consult to Neurology / Tele-Neurology Stat Comment: new onset of seizure likely secondary to EEG Consulting Provider: Dino Guillen Attending Provider on DC: Sherry Nava Discharging Provider: Sherry Nava Anticipated date of discharge: 05/13/25 DS: Diagnosis Problem List Completed Was Problem List Reviewed/Reconciled?: Yes Hospital Course Hospital Course Hospital course: Summary: Patient is 60 y/o male with a PMHx of HTN who was recently started on several medications including Amitriptyline, Amlodipine and Lisinopril by PCP. Patient was an overnight admit 05/11 for new onset seizure likely secondary alcoholic- related seizure and possible Wernicke encephalopathy. ER Course: Chest x-ray and head CT completed demonstrated normal findings. EKG completed demonstrated sinus tachycardia with incomplete right bundle branch block. Pertinent labs included anion gap 18, lactate down-trending from 9.2 to 1.3, and CK 248. Medication received in ER: 250 mg IV, phenytoin 1000 mg IV , and diazepam 10 mg PO for seizure control, and Hydralazine 20 mg mg IVP for BP control. Hospital Course: Patient stated his last drink was 2 days ago at the time of admission, thus greater than 48 hours.? Patient was cooperative and did not appear to be in acute distress. Alert and orientatex 3. Described a post ictal state. Patient continued to deny urinary incontinence.? He continued to deny previous seizure episodes. Patient stated that he is feeling better. Patient's nystagmus has resolved. Patient confirmed that he drinks 3-4 beers 3 to 4 times a week. Patient states that he drinks half a glass of vodka, but is not clear about how often. Patient continued to deny N/V, visual, auditory, and tactile disturbances, and anxiety. Patient was given thiamine 500 mg IV TID and folic acid 1 mg BID. Pertinent labs include Hct 40.9 and AST 83. Liver ultrasound completed 05/12 demonstrated mild hepatomegaly with fatty infiltration and recommendation made for possible liver elastography. EEG demonstrated normal findings. Per neurology recommendations, continue thiamine and folate supplementation. Instructions: -Please continue all medication as prescribed, no changes made. -Please follow up with your primary care provider within one week after discharge and please follow [facility] neurlogist. -If your symptoms worsen, please seek immediate medical attention and return to your nearest emergency room -If you do not have a primary care provider, you may follow up at the [facility] at [address], [place] [address], Patient is safe to discharge to home. #Alcohol Withdrawal, seizure like activity #Alcohol Use Disorder #Wernicke encephalopathy, likely symptoms #Hypertension Isatu Currie MD PGY2 Internal Medicine Status at Discharge Functional status at discharge: independent ambulation Overall status at discharge: patient is back to baseline Time Spent with Patient Time attestation: Total time spent providing and/or coordinating discharge services: Time spent: Greater than 30 minutes Exam Vital Signs Temp Pulse Resp BP Pulse Ox O2 Del Method 98.4 F 80 14 157/95 H 99 Room Air 05/13/25 20:00 05/13/25 21:07 05/13/25 21:07 05/13/25 20:00 05/13/25 20:00 05/13/25 20:00 Narrative Exam General Appearance: Alert & Oriented X3, well-nourished male who is lying in bed in no acute distress. HEENT: Skull symmetrical and atraumatic. Conjunctivae pale and moist. Pupils equal, round, reactive to light and accommodation (PERRL). External ear without lesion or discharge. Straight, nares patient, mucosa pink, no discharge. No thyroid nodule appreciated. No cervical lymphadenopathy. Cardio: Normal Rate and Rhythm with S1 and S2 heart sounds. No murmurs or extra heart sounds auscultated. No bruits on carotid auscultation. No peripheral edema or cyanosis. Lungs: Symmetric with good expansion. Chest and back non-tender. Breath sounds vesicular without crackles, wheezing or rhonchi Abdomen: Non-tender, Non-distended, Normal Reactive Bowel Sounds Neuro: Alert, cooperative, oriented to person, place, and time. Speech clear. CN grossly intact. Upper motor strength 5/5 and Lower motor strength 5/5. Sensation intact. Discharge Plan Plan Patient Disposition: HOME (Self Care) Patient condition on transfer: Stable Care Plan Goals: Instructions: -Thiamine vitamin for the next 5 days -continue home medication as prescribed. -Please follow up with neurology, Dr. Guillen, -Please follow up with your primary care provider within one week of discharge -If your symptoms worsen,please seek immediate medical attention and return to your nearest emergency room -If you do not have a primary care provider, you may follow up at the [facility] at [address] [place] [address] [address], [place] [address], Prescriptions/Referrals Prescriptions/Med Rec: New thiamine mononitrate (vit B1) 100 mg Tablet 100 mg PO BID 5 Days Qty: 10 0RF Continued amlodipine 10 mg tablet 10 mg PO QDAY Qty: 30 0RF Patient Comments: pt states it's been a few weeks since he's taken any lisinopril 10 mg tablet 10 mg PO QDAY Patient Comments: last taken was few weeks ago amitriptyline 25 mg tablet 25 mg PO QDAY Patient Comments: pt has not taken for a few weeks Referrals: Carl Gautam MD [Primary Care Provider] - Dino Guillen MD [Physician] - (Patient to call and make an appointment to be seen within the next 2 weeks) Patient/Caregiver Discharge Instructions Meds to Beds: No Discharge Activity: as per physical therapy Education Materials: Alcohol Withdrawal: What to Expect, ED Alcohol Withdrawal Seizure Print Language: Wolof Stand Alone Forms: Estefania Award Info., Patient Portal Info Letter Discharge Order Discharge Orders: Discharge (Routine); Ordered 05/13/25 Ordered By: Isatu Currie Quality Discharge Quality Measures VTE prophylaxis (Lovenox 40 mg SC QD) MD Attestestation MD Attestation I have discussed and was present for the essential components of the history, physical examination, diagnosis, and treatment plan with the resident. I agree with the patient's care as documented by the resident and amended herein by me. Tanmay Ho DO. Although this document has been carefully reviewed, there may still be some phonetic and other typographical errors. These errors are purely grammatical due to imperfections in the software program and should not be construed in any way to compromise the substance of the patient's medical care during this visit.
== END 2025-05-13 20:52 | disposition home or self-care (01) | DRG 897 ==
LOC: SERX 18:30 → SERHOLD 19:59 → S2NX 05-12 01:51
PROVIDERS: Student in an Organized Health Care Education/Training Program; Admitting Provider Internal Medicine; Emergency Provider Emergency Medicine; PCP Internal Medicine; Visit Provider Internal Medicine
DX: F10.230 Alcohol dependence with withdrawal, uncomplicated (principal); E51.2 Wernicke's encephalopathy; E87.20 Acidosis, unspecified; R56.9 Unspecified convulsions; I10 Essential (primary) hypertension; H55.09 Other forms of nystagmus; I45.10 Unspecified right bundle-branch block; K76.0 Fatty (change of) liver, not elsewhere classified; Z79.899 Other long term (current) drug therapy
CPT/HCPCS: 36415; 70450; 71045; 76705; 80053; 80307; 80320; 81001; 82550; 82803; 83605; 83735; 83880; 84100; 84484; 85025; 93005; 94762; 95816; 96361; 96365; 96367; 96368; 96375; 99285; J0360; J1165; J1650; J3411; J7050; J7120; A9270; G0480

== ENCOUNTER 2025-07-19 16:00 | Emergency (ER) | payer BC, SELFPAY ==
[2025-07-19 16:03] VITALS: BP 136/89; PULSE 78; RESP 18; TEMP 36.4; O2SAT 97
--- NOTE | 2025-07-19 16:07 | EDNOTE_ITS ---
ED General RME/HPI General Chief complaint: Altered Mental Status Stated complaint: ALCHOHOL INTOXICATION Time Seen by Provider: 07/19/25 16:05 Arrival date/time: 07/19/25 16:00 CC: Alcohol intoxication HPI patient present to the ER via EMS who reports stable vital signs. Patient was at home, drinks every day, was gone for the weekend states when she came back he was drunk or than normal . Patient admits to drinking more than he usually does. Patient has slurred speech but is awake alert oriented no specific complaints of pain is aware of where he is. Related Data Home Medications ?Medication ?Instructions ?Recorded ?Confirmed amitriptyline 25 mg tablet 25 mg PO QDAY 05/12/2512/06 lisinopril 10 mg tablet 10 mg PO QDAY 05/12/2505/12 Previous Rx's ?Medication ?Instructions ?Recorded amlodipine 10 mg tablet 10 mg PO QDAY #30 tabs 11/25 Allergies Allergy/AdvReac Type Severity Reaction Status Date / Time No Known Allergies Allergy Verified 07/19/25 16:56 Review of Systems Review of Systems Narrative Review of Systems: GEN: No fever, no chills, no weight loss EYES: No discharge, no visual changes, no pain HEENT: No ear pain, no congestion, no sore throat PULM: No shortness of breath, no cough, no congestion CV: No chest pain, no dyspnea on exertion, no palpitations GI: No nausea, no vomiting, no diarrhea, no pain, no constipation : No frequency, no urgency, no dysuria MUSC/SKEL: No joint pain, no back pain SKIN: No rash PSYCH: No hallucinations, no depression HEME/LYMPH: No easy bleeding or bruising tendencies NEURO: No weakness, no headache Past Medical History Past Medical History NEUROLOGIC: Positive Traumatic Brain Injury CARDIAC: Positive Cardiac Disorders and Hypertension; Negative Congestive Heart Failure RESPIRATORY: Negative Chronic Obstructive Pulmonary Disease (COPD) or Asthma GENITOURINARY: Negative Renal Disease ENDOCRINE: Negative Diabetes Mellitus Type 1 or Diabetes Mellitus Type 2 HEMATOLOGIC: Negative Sickle Cell Disease PSYCHO/SOCIAL: Positive Depression Surgical History SURGICAL: Positive Cardiac Surgery and Tonsillectomy Social History SMOKING STATUS: Never smoker SECOND HAND EXPOSURE: No SUBSTANCE USE: does not use ED Exam Narrative Physical exam: [General: Appears not in any acute distress Head normocephalic HEENT: Eyes: Pupils are PERRLA EOMs are intact mouth pink dry membranes uvula is midline swallow symmetrical phonation is normal. All other subsystems HEENT are within acceptable limits Neck is supple nontender Chest equal chest rise nontender to palpation Respiratory: Clear to auscultation no wheezes crackles or rubs CV: Rate rhythm is regular no murmurs rubs or clicks Abdomen is soft nontender no masses positive bowel sounds all 4 quadrants Back: No CVA tenderness no spinous process tenderness from cervical spine thoracic and lumbar spine Skin: Intact no petechiae rash induration ulceration or crepitus Extremities: Moving all extremity against resistance cap refill less than 2 seconds neurosensory intact Neuro: Awake alert oriented x3 Glascow coma 15 no focal deficits] Course Course Course Narrative: is at bedside at 1738, states she was not with him during the weekend was concerned that he had drank more than usual. At this time if the patient is able to ambulate and eat food without any complication after the IV fluids we will discharge him home. At 1920, the patient is ambulated without complication tolerating p.o. fluids and engaging in conversations with his , patient has no acute finding we will discharge him home with alcohol intoxication alcoholism. Quality Measures none Orders Category Date Time Status Alcohol, Blood Medical Stat Lab 07/19/25 16:36 Completed CBC Stat Lab 07/19/25 16:36 Completed CMP [Comprehensive Metabolic Panel] Stat Lab 07/19/25 16:36 Completed PT [Prothrombin Time with INR] Stat Lab 07/19/25 16:36 Completed PTT [Partial Thromboplastin Time] Stat Lab 07/19/25 16:36 Completed Folic Acid Inj Med 07/19/25 16:05 Discontinued 1 mg IVP X1 ONE Sodium Chloride 0.9% 1000 ml [Ns] 1,000 ml Med 07/19/25 16:06 Discontinued IV 999 mls/hr Thiamine Inj [Vitamin B-1 Inj] Med 07/19/25 16:15 Discontinued 250 mg IV X1 ONE Thiamine Inj [Vitamin B-1 Inj] 250 mg Med 07/19/25 16:06 Discontinued Sodium Chloride 0.9% [Ns] 100 ml IV X1 Vital Signs Vital signs: Vital Signs Temperature 97.5 F 07/19/25 16:03 Pulse Rate 78 07/19/25 16:03 Respiratory Rate 18 07/19/25 16:03 Blood Pressure 136/89 H 07/19/25 16:03 Pulse Oximetry (%) 97 07/19/25 16:03 Oxygen Delivery Method Room Air 07/19/25 16:03 Discharge Plan Plan Patient Disposition: HOME (Self Care) Patient condition on transfer: Stable Prescriptions/Referrals Prescriptions/Med Rec: No Action amlodipine 10 mg tablet 10 mg PO QDAY Qty: 30 0RF Patient Comments: pt states it's been a few weeks since he's taken any lisinopril 10 mg tablet 10 mg PO QDAY Patient Comments: last taken was few weeks ago amitriptyline 25 mg tablet 25 mg PO QDAY Patient Comments: pt has not taken for a few weeks Referrals: No Primary/Family,Physician [Primary Care Provider] - In 1 week Nolberto Gutierrez MD [Physician, Family Practice] - In 1 week Problem List Clinical Impression: Alcohol intoxication Patient/Caregiver Discharge Instructions Education Materials: ED Alcohol Intoxication Print Language: Latvian Stand Alone Forms: Estefania Award Info., Patient Portal Info Letter PA/APPLICATION DESIGN ENGINEER Supervising Physician PA/APPLICATION DESIGN ENGINEER Supervising Physician: Adan Mendoza ENP [facility] Clinical Information Provided by patient and EMS Medical Records [facility]ed [facility] and [facility] Lab Interpretation Lab(s) interpretation(s): CBC shows no acute leukocytosis anemia thrombocytopenia Coags within acceptable limits CMP shows no significant electrolyte imbalances renal impairment transaminitis or T. bili elevation Alcohol level is 391. Medication Administration(s) Medication Administration History Discontinued Medications Folic Acid (Folic Acid Inj 1 Mg/0.2 Ml) 1 mg IVP X1 ONE Stop: 07/19/25 16:06 Last Admin: 07/19/25 17:57 Dose: 1 mg Documented By: BY Sodium Chloride (Ns) 1,000 mls @ 999 mls/hr IV .Q1H1M ONE Stop: 07/19/25 17:06 Last Admin: 07/19/25 17:53 Dose: 999 mls/hr Documented By: BY Thiamine HCl 250 mg/ Sodium (Chloride) 102.5 mls @ 205 mls/hr IV X1 ONE Stop: 07/19/25 16:35 Last Admin: 07/19/25 18:22 Dose: Not Given Documented By: DB Non-Admin Reason: Cancelled by Provider Thiamine HCl (Thiamine Inj 100 Mg/Ml Vial 2 Ml) 250 mg IV X1 ONE Stop: 07/19/25 16:16 Last Admin: 07/19/25 17:56 Dose: 250 mg Documented By: BY
[2025-07-19 16:51] VITALS: PULSE 80; O2SAT 99; BMI 24.3
[2025-07-19 16:52] LABS: Basophils # (Auto) 0.1 Thou/mm3 (0.0-0.2); Basophils % (Auto) 1 % (0-2.5); Eosinophils # (Auto) 0.1 Thou/mm3 (0.0-0.5); Eosinophils % (Auto) 1 % (0-10); Hematocrit 46.9 % (41.0-53.0); Hemoglobin 15.7 g/dL (13.5-16.0); Immature Granulocytes Auto 0.02 Thou/mm3 (0.00-0.00); Lymphocytes # (Auto) 2.0 Thou/mm3 (1.0-4.8); Lymphocytes % (Auto) 23 % (10-50); Mean Corpuscular HGB Conc 33.5 g/dl (31.0-37.0); Mean Corpuscular Hemoglobin 30.5 pg (25.0-35.0); Mean Corpuscular Volume 91 fL (80-100); Monocytes # (Auto) 0.5 Thou/mm3 (0.0-0.8); Monocytes % (Auto) 5 % (0-12); Neutrophils # (Auto) 6.0 Thou/mm3 (1.8-7.7); Neutrophils % (Auto) 70 % (37-80); Nucleated Red Blood Cell # 0.00 Thou/mm3 (0.00-0.00); Nucleated Red Blood Cell % 0 /100 WBC (0); Platelet Count 262 Thou/mm3 (140-440); RDW Standard Deviation 41.8 fL (35.1-43.9); Red Blood Count 5.14 Miln/mm3 (4.50-5.90); White Blood Count 8.7 Thou/mm3 (3.8-10.6)
[2025-07-19 17:18] LABS: INR 1.0 (0.9-1.3); Partial Thromboplastin Time 26.4 Seconds (22.0-36.0); Prothrombin Time 10.8 Seconds (9.0-12.2)
[2025-07-19 17:28] LABS: Alanine Aminotransferase 19 U/L (10-49); Albumin, Serum 4.8 gm/dL (3.4-4.8); Albumin/Globulin Ratio 1.9 (1.2-2.2); Alcohol, Blood Medical 391.6 mg/dL (0-10.0); Alkaline Phosphatase 82 U/L (46-116); Anion Gap 14 (7-16); Aspartate Amino Transferase 26 U/L (0-34); BUN/Creatinine Ratio 9 Ratio (12-20); Bilirubin,Total 0.5 mg/dL (0.3-1.2); Blood Urea Nitrogen 7 mg/dL (9-23); Calcium 9.3 mg/dL (8.3-10.6); Calcium (Corrected) 9.3 mg/dL (8.5-10.1); Carbon Dioxide 24.0 mMol/L (20.0-31.0); Chloride 107 mMol/L (98-107); Creatinine (Component) 0.8 mg/dL (0.6-1.3); Estimated Creatinine Clearance 100.1 mL/min (>60); Globulin 2.5 gm/dL (2.3-3.5); Glucose 100 mg/dL (74-106); Osmolality,Calculated 286 (275-295); Potassium 3.8 mMol/L (3.4-5.1); Sodium 145 mMol/L (136-145); Total Protein 7.3 gm/dL (5.7-8.2); eGFR > 60 See Note
[2025-07-19] MEDS: SODIUM CHLORIDE 0.9% 1000 ML 1,000 ML 999 ML IV (17:53)
[2025-07-19] MEDS: THIAMINE INJ 100 MG/ML VIAL 2 ML 250 MG IV (17:56)
[2025-07-19] MEDS: FOLIC ACID INJ 1 MG/0.2 ML IVP (17:57)
[2025-07-19 18:06] VITALS: BP 131/85; PULSE 87; RESP 17; O2SAT 95
[2025-07-19 19:44] VITALS: BP 131/85; PULSE 83; RESP 12; O2SAT 98
== END 2025-07-19 19:46 | disposition home or self-care (01) ==
PROVIDERS: Registered Nurse General Practice; Emergency Provider Emergency Medicine
DX: F10.129 Alcohol abuse with intoxication, unspecified (principal)
CPT/HCPCS: 36415; 80053; 80320; 85025; 85610; 85730; 96361; 96374; 99283; J3411; J3490; J7030; G0480

== ENCOUNTER 2025-10-09 15:09 | Inpatient (IN) | payer BC, SELFPAY ==
[2025-10-09] VITALS (9 sets, daily range): BP systolic 154–172; BP diastolic 72–111; PULSE 96–114; RESP 16–20; TEMP 36.7–37.2; O2SAT 94–97; BMI 24.3
--- NOTE | 2025-10-09 15:31 | XR_ITS ---
EXAMINATION: AP chest single view TECHNIQUE: AP portable upright chest single view Date and time: October 09, 2025, 1537 hours, comparison May 11, 2025 INDICATIONS: Shortness of breath today. FINDINGS: Suspicious for early left base pneumonia. Normal heart size No pulmonary edema. Moderate osteopenia IMPRESSION: Suspicious for early left base pneumonia
--- NOTE | 2025-10-09 15:31 | XR_ITS ---
Examination: CT brain head without contrast. 2-D sagittal coronal reconstructions Date and time of exam: October 09, 2025, 1558 hours INDICATIONS: Altered mental status today CTDI: vol (mGy): 48.4 DLP: (mGycm): 991 Technique: Multiple CT axial sections of the brain have been obtained, 5 mm slice thickness. Contrast has not been administered. 2-D sagittal, coronal reconstructions have been obtained Low dose protocols were performed. One or more of the following dose reduction techniques were used; automated exposure control, adjustment of the mA and/or KV according to patient size, use of iterative reconstruction technique. Findings: No significant ventricular enlargement. Bifrontal encephalomalacia Intra-axial or extra-axial hemorrhage density is not seen. No mass effect or midline shift Basal cisterns are not remarkable. Fourth ventricle is midline. Cranial vault intact. Impression: Negative for acute hemorrhage, mass effect or midline shift Advise clinical correlation and follow-up accordingly
--- NOTE | 2025-10-09 15:31 | EKG_ITS ---
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
[2025-10-09] MEDS: RINGERS LACTATED 1000 ML 1,000 ML 999 ML IV (15:46)
[2025-10-09] MEDS: levETIRAcetam INJ 100 MG/ML VIAL 5ML 1000 MG IVP (15:46)
[2025-10-09] MEDS: LORazepam 2 MG/ML VIAL IVP (15:46)
[2025-10-09 15:50] LABS: Basophils # (Auto) 0.1 Thou/mm3 (0.0-0.2); Basophils % (Auto) 1 % (0-2.5); Eosinophils # (Auto) 0.1 Thou/mm3 (0.0-0.5); Eosinophils % (Auto) 2 % (0-10); Hematocrit 41.4 % (41.0-53.0); Hemoglobin 14.2 g/dL (13.5-16.0); Immature Granulocytes Auto 0.02 Thou/mm3 (0.00-0.00); Lymphocytes # (Auto) 1.4 Thou/mm3 (1.0-4.8); Lymphocytes % (Auto) 24 % (10-50); Mean Corpuscular HGB Conc 34.3 g/dl (31.0-37.0); Mean Corpuscular Hemoglobin 31.0 pg (25.0-35.0); Mean Corpuscular Volume 90 fL (80-100); Monocytes # (Auto) 0.8 Thou/mm3 (0.0-0.8); Monocytes % (Auto) 14 % (0-12); Neutrophils # (Auto) 3.6 Thou/mm3 (1.8-7.7); Neutrophils % (Auto) 59 % (37-80); Nucleated Red Blood Cell # 0.00 Thou/mm3 (0.00-0.00); Nucleated Red Blood Cell % 0 /100 WBC (0); Platelet Count 236 Thou/mm3 (140-440); RDW Standard Deviation 44.0 fL (35.1-43.9); Red Blood Count 4.58 Miln/mm3 (4.50-5.90); White Blood Count 6.0 Thou/mm3 (3.8-10.6)
[2025-10-09 16:08] LABS: Lactate (Lactic Acid) 9.9 mMol/L (0.4-2.0)
[2025-10-09 16:09] LABS: Alanine Aminotransferase 42 U/L (10-49); Albumin, Serum 4.8 gm/dL (3.4-4.8); Albumin/Globulin Ratio 1.8 (1.2-2.2); Alcohol, Blood Medical 11.7 mg/dL (0-10.0); Alkaline Phosphatase 82 U/L (46-116); Anion Gap 19 (7-16); Aspartate Amino Transferase 59 U/L (0-34); BUN/Creatinine Ratio 9 Ratio (12-20); Bilirubin,Total 0.7 mg/dL (0.3-1.2); Blood Urea Nitrogen 9 mg/dL (9-23); Calcium 8.8 mg/dL (8.3-10.6); Calcium (Corrected) 8.8 mg/dL (8.5-10.1); Carbon Dioxide 19.3 mMol/L (20.0-31.0); Chloride 102 mMol/L (98-107); Creatinine (Component) 1.0 mg/dL (0.6-1.3); Globulin 2.6 gm/dL (2.3-3.5); Glucose 102 mg/dL (74-106); Lipase 59 U/L (12-53); Osmolality,Calculated 278 (275-295); Potassium 4.0 mMol/L (3.4-5.1); Sodium 140 mMol/L (136-145); Total Protein 7.4 gm/dL (5.7-8.2); eGFR > 60 See Note
[2025-10-09 17:10] LABS: INR 0.9 (0.9-1.3); Prothrombin Time 9.8 Seconds (9.0-12.2)
[2025-10-09 18:40] LABS: Reflex Lactate? Y
--- NOTE | 2025-10-09 19:14 | PC.NURSE ---
Patient report received from Hussein LOCKHART, patient is awake, calm and resting in bed, vital signs are stable with BP noted to be elevated but at baseline for patient.
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
[2025-10-09 19:48] LABS: Lactic Acid, 3 HR 1.1 mMol/L (0.4-2.0)
[2025-10-09 20:43] LABS: Amphetamine/Methamp Scrn,U Negative (Negative); Barbiturate Screen,Urine Negative (Negative); Benzodiazepines Screen,Urine Negative (Negative); Benzoylecgonine Screen, Ur Negative (Negative); Fentanyl Screen,Urine Negative (Negative); Opiate Screen,Urine Negative (Negative); THC Screen,Urine Negative (Negative)
[2025-10-09] MEDS: THIAMINE 100 MG TABLET PO (21:15)
[2025-10-09] MEDS: FOLIC ACID 1 MG TABLET PO (21:15)
[2025-10-09] MEDS: HEPARIN SOD INJ 5000 UNIT/ML VIAL SC (21:19)
[2025-10-10] VITALS (9 sets, daily range): BP systolic 132–160; BP diastolic 94–106; PULSE 75–98; RESP 13–20; TEMP 36.1–36.9; O2SAT 95–98; BMI 25.4
[2025-10-10 06:37] LABS: Basophils # (Auto) 0.1 Thou/mm3 (0.0-0.2); Basophils % (Auto) 1 % (0-2.5); Eosinophils # (Auto) 0.0 Thou/mm3 (0.0-0.5); Eosinophils % (Auto) 0 % (0-10); Hematocrit 42.5 % (41.0-53.0); Hemoglobin 14.4 g/dL (13.5-16.0); Immature Granulocytes Auto 0.02 Thou/mm3 (0.00-0.00); Lymphocytes # (Auto) 0.7 Thou/mm3 (1.0-4.8); Lymphocytes % (Auto) 8 % (10-50); Mean Corpuscular HGB Conc 33.9 g/dl (31.0-37.0); Mean Corpuscular Hemoglobin 30.8 pg (25.0-35.0); Mean Corpuscular Volume 91 fL (80-100); Monocytes # (Auto) 1.1 Thou/mm3 (0.0-0.8); Monocytes % (Auto) 12 % (0-12); Neutrophils # (Auto) 6.9 Thou/mm3 (1.8-7.7); Neutrophils % (Auto) 79 % (37-80); Nucleated Red Blood Cell # 0.00 Thou/mm3 (0.00-0.00); Nucleated Red Blood Cell % 0 /100 WBC (0); Platelet Count 178 Thou/mm3 (140-440); RDW Standard Deviation 43.9 fL (35.1-43.9); Red Blood Count 4.67 Miln/mm3 (4.50-5.90); White Blood Count 8.8 Thou/mm3 (3.8-10.6)
[2025-10-10 06:48] LABS: Alanine Aminotransferase 33 U/L (10-49); Albumin, Serum 4.5 gm/dL (3.4-4.8); Albumin/Globulin Ratio 1.8 (1.2-2.2); Alkaline Phosphatase 77 U/L (46-116); Anion Gap 9 (7-16); Aspartate Amino Transferase 46 U/L (0-34); BUN/Creatinine Ratio 9 Ratio (12-20); Bilirubin,Total 1.7 mg/dL (0.3-1.2); Blood Urea Nitrogen 8 mg/dL (9-23); Calcium 9.3 mg/dL (8.3-10.6); Calcium (Corrected) 9.3 mg/dL (8.5-10.1); Carbon Dioxide 29.2 mMol/L (20.0-31.0); Cardiac Risk Estimate 2.4 RATIO (4.0-6.7); Chloride 100 mMol/L (98-107); Cholesterol 205 mg/dL (132-200); Creatinine (Component) 0.9 mg/dL (0.6-1.3); Estimated Creatinine Clearance 89.0 mL/min (>60); Globulin 2.5 gm/dL (2.3-3.5); Glucose 93 mg/dL (74-106); HDL Cholesterol 86 mg/dL (40-60); LDL Cholesterol,Calculated 92 mg/dL (0-130); Magnesium 1.8 mg/dL (1.6-2.6); Osmolality,Calculated 273 (275-295); Phosphorous 2.7 mg/dL (2.4-5.1); Potassium 4.1 mMol/L (3.4-5.1); Sodium 138 mMol/L (136-145); Total Protein 7.0 gm/dL (5.7-8.2); Triglycerides 137 mg/dL (30-150); eGFR > 60 See Note
[2025-10-10] MEDS: FOLIC ACID 1 MG TABLET PO (08:45)
[2025-10-10] MEDS: THIAMINE 100 MG TABLET PO (08:45)
[2025-10-10] MEDS: HEPARIN SOD INJ 5000 UNIT/ML VIAL SC (08:47)
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
== END 2025-10-10 14:44 | disposition home or self-care (01) | DRG 897 ==
LOC: SERX 18:42 → SERHOLD 19:14 → S2NX 10-10 03:00
PROVIDERS: Nurse Practitioner Family; Admitting Provider Student in an Organized Health Care Education/Training Program; Emergency Provider Emergency Medicine; Visit Provider Student in an Organized Health Care Education/Training Program
DX: F10.139 Alcohol abuse with withdrawal, unspecified (principal); E87.20 Acidosis, unspecified; E78.5 Hyperlipidemia, unspecified; I10 Essential (primary) hypertension; R56.9 Unspecified convulsions; R29.6 Repeated falls; Z79.899 Other long term (current) drug therapy
CPT/HCPCS: 36415; 70450; 71045; 80053; 80061; 80307; 80320; 83605; 83690; 83735; 84100; 85025; 85610; 93005; 96361; 96374; 96375; 99284; J1644; J1953; J2060; J7120; A9270; G0480

== ENCOUNTER 2025-10-23 20:50 | Emergency (ER) | payer BC, SELFPAY ==
[2025-10-23 20:59] VITALS: BP 158/98; PULSE 84; RESP 16; TEMP 36.9; O2SAT 96
[2025-10-23 21:01] VITALS: PULSE 92; O2SAT 95
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
[2025-10-23 22:12] LABS: Basophils # (Auto) 0.1 Thou/mm3 (0.0-0.2); Basophils % (Auto) 2 % (0-2.5); Eosinophils # (Auto) 0.1 Thou/mm3 (0.0-0.5); Eosinophils % (Auto) 1 % (0-10); Hematocrit 46.0 % (41.0-53.0); Hemoglobin 15.9 g/dL (13.5-16.0); Immature Granulocytes Auto 0.01 Thou/mm3 (0.00-0.00); Lymphocytes # (Auto) 2.4 Thou/mm3 (1.0-4.8); Lymphocytes % (Auto) 36 % (10-50); Mean Corpuscular HGB Conc 34.6 g/dl (31.0-37.0); Mean Corpuscular Hemoglobin 31.4 pg (25.0-35.0); Mean Corpuscular Volume 91 fL (80-100); Monocytes # (Auto) 0.6 Thou/mm3 (0.0-0.8); Monocytes % (Auto) 9 % (0-12); Neutrophils # (Auto) 3.4 Thou/mm3 (1.8-7.7); Neutrophils % (Auto) 52 % (37-80); Nucleated Red Blood Cell # 0.00 Thou/mm3 (0.00-0.00); Nucleated Red Blood Cell % 0 /100 WBC (0); Platelet Count 300 Thou/mm3 (140-440); RDW Standard Deviation 44.5 fL (35.1-43.9); Red Blood Count 5.07 Miln/mm3 (4.50-5.90); White Blood Count 6.6 Thou/mm3 (3.8-10.6)
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
[2025-10-23 22:48] LABS: Alanine Aminotransferase 71 U/L (10-49); Albumin, Serum 5.1 gm/dL (3.4-4.8); Albumin/Globulin Ratio 1.7 (1.2-2.2); Alcohol, Blood Medical 342.8 mg/dL (0-10.0); Alkaline Phosphatase 97 U/L (46-116); Anion Gap 12 (7-16); Aspartate Amino Transferase 100 U/L (0-34); BUN/Creatinine Ratio 9 Ratio (12-20); Bilirubin,Total 0.6 mg/dL (0.3-1.2); Blood Urea Nitrogen 7 mg/dL (9-23); Calcium 9.7 mg/dL (8.3-10.6); Calcium (Corrected) 9.7 mg/dL (8.5-10.1); Carbon Dioxide 27.5 mMol/L (20.0-31.0); Chloride 103 mMol/L (98-107); Creatinine (Component) 0.8 mg/dL (0.6-1.3); Globulin 3.0 gm/dL (2.3-3.5); Glucose 110 mg/dL (74-106); Osmolality,Calculated 282 (275-295); Potassium 4.2 mMol/L (3.4-5.1); Sodium 142 mMol/L (136-145); Total Protein 8.1 gm/dL (5.7-8.2); eGFR > 60 See Note
[2025-10-23 23:17] LABS: Bilirubin,Direct 0.2 mg/dL (0.0-0.3); Lipase 54 U/L (12-53); Magnesium 2.0 mg/dL (1.6-2.6); Troponin I < 0.020 ng/mL (0.0-0.045)
[2025-10-23 23:19] LABS: B-Type Natriuretic Peptide < 20 pg/mL (0-100)
--- NOTE | 2025-10-24 00:57 | PC.NURSE ---
CALLED PATIENT IN THE LOBBY AND OUTSIDE, NO ANSWER RECEIVED.
--- NOTE | 2025-10-24 01:04 | PD.EDADDENDU ---
Emergency Room Addendum Addendum Narrative: Rapid evaluation performed by Edilma Ceja NP. When I looked for the patient to start my evaluation, I was told the patient eloped. Sarwat Mariee MD
--- NOTE | 2025-10-24 01:04 | PC.NURSE ---
STAFF CALLED PATIENT IN THE LOBBY AND OUTSIDE, NO ANSWER RECEIVED.
--- NOTE | 2025-10-24 01:22 | PC.NURSE ---
CALLED PATIENT IN THE LOBBY, RESTROOM, AND OUTSIDE, NO ANSWER RECEIVED.
== END 2025-10-24 01:22 | disposition left against medical advice (07) ==
LOC: SERX 10-24 01:29
PROVIDERS: Nurse Practitioner Family; Emergency Provider Emergency Medicine
DX: R55 Syncope and collapse (principal); F10.129 Alcohol abuse with intoxication, unspecified; R94.31 Abnormal electrocardiogram [ECG] [EKG]; Y90.8 Blood alcohol level of 240 mg/100 ml or more; Z53.29 Procedure and treatment not carried out because of patient's decision for other reasons
CPT/HCPCS: 36415; 80053; 80307; 80320; 81001; 82248; 83690; 83735; 83880; 84484; 85025; 93005; 99282; G0480